=== PATIENT | male | born 1980 | race Caucasian/White ===

== ENCOUNTER 2017-06-25 13:35 | Emergency (ER) | payer BC ==
[2017-06-25 14:27] VITALS: BP 115/83
--- NOTE | 2017-06-25 14:56 | UC ---
Complaint Male HPI - HPI Summary HPI Summary: 37 year old male presents with external hemorrhoids. - History of Current Complaint Chief Complaint: UCGU Stated Complaint: PERSONAL Time Seen by Provider: 06/25/17 14:52 Hx Obtained From: Patient Onset/Duration: Sudden Onset Timing: Constant Severity Initially: Moderate Severity Currently: Moderate Pain Scale Used: 0-10 Numeric - 5 - Allergies/Home Medications Allergies/Adverse Reactions: Allergies Allergy/AdvReac Type Severity Reaction Status Date / Time No Known Allergies Allergy Verified 06/25/17 14:27 Home Medications: Home Medications Acetaminophen [Acetaminophen Extra Stren] 1,000 mg PO ONCE 06/25/17 [History Confirmed 06/25/17] Hemorrhoidal OINT* [Preparation H*] 1 applic [place] Q12H PRN 06/25/17 [History Confirmed 06/25/17] PMH/Surg Hx/FS Hx/Imm Hx Previously Healthy: Yes - Surgical History Surgical History: Yes Surgery Procedure, Year, and Place: kidney biopsy - Family History Known Family History: Positive: Hypertension - mother, Diabetes - mother Negative: Renal Disease - Social History Alcohol Use: None Substance Use Type: None Smoking Status (MU): Never Smoked Tobacco Type: Smokeless Tobacco Amount Used/How Often: 13 yrs When Did the Patient Quit Smoking/Using Tobacco: 2012 - Immunization History Most Recent Influenza Vaccination: no Review of Systems Constitutional: Negative Skin: Negative Eyes: Negative ENT: Negative Respiratory: Negative Cardiovascular: Negative Gastrointestinal: Negative Genitourinary: Other - external hemorrhoids Motor: Negative Neurovascular: Negative Musculoskeletal: Negative Neurological: Negative Psychological: Negative All Other Systems Reviewed And Are Negative: Yes Physical Exam Triage Information Reviewed: Yes Vital Signs: Initial Vital Signs Temp 36.8 C 06/25/17 14:22 Pulse 88 06/25/17 14:22 Resp 16 06/25/17 14:22 BP 115/83 06/25/17 14:22 Pulse Ox 99 06/25/17 14:22 Vital Signs Reviewed: Yes Eye Exam: Normal ENT Exam: Normal Dental Exam: Normal Neck exam: Normal Neck: Positive: 1 Respiratory Exam: Normal Cardiovascular Exam: Normal Abdominal Exam: Normal Abdomen Description: Positive: Other: Musculoskeletal Exam: Normal Neurological Exam: Normal Psychological Exam: Normal Skin Exam: Normal Complaint Male Course/Dx - Differential Dx/Diagnosis Provider Diagnoses: external hemorrhoids at 3 pm Discharge - Discharge Plan Condition: Stable Disposition: HOME Prescriptions: Hydrocortisone Acetate W/ Pram [Analpram Hc 2.5-1 %] 1 cre AZ TID PRN #1 tube PRN Reason: Pain Hydrocortisone SUPP* [Anusol HC Supp*] 25 mg AZ TID PRN #12 supp PRN Reason: Pain Patient Education Materials: Hemorrhoids (ED) Referrals: Antwan August MD [Primary Care Provider] - Additional Instructions: will follow up with his gi in [place] GI REFERRAL
== END 2017-06-25 15:10 | disposition home or self-care (01) ==
LOC: UCCORT 13:35
DX: K64.4 Residual hemorrhoidal skin tags (principal)
CPT/HCPCS: 99212; G0463

== ENCOUNTER 2017-06-28 14:35 | Emergency (ER) | payer BC ==
[2017-06-28 14:54] VITALS: BP 107/80
--- NOTE | 2017-06-28 15:46 | UC ---
Back Pain HPI - HPI Summary HPI Summary: PT HAS A H/O MINIMAL CHANGE DISEASE FOLLOWED BY NEPHROLOGY IN [place]. REPORTS THAT HIS "GUT HAS FELT OFF" FOR ABOUT 4 DAYS AND ALSO STARTED WITH LOWER EXTREMITY SWELLING. STATES THAT WHEN THE SWELLING STARTS IT IS USUALLY HIS DISEASE FLARING. HE WENT TO [facility] WHERE HE HAS A STANDING ORDER FOR LABS AND WAS TOLD HIS NUMBERS WERE AT [facility]. HE WAS PLACED ON 60MG PREDNISONE DAILY WHICH HE HAS TAKEN FOR 2 DAYS AND LASIX THAT HE STARTED LAST NIGHT. REPORTS THAT WHILE AT WORK TODAY HE VOMITED. WENT HOME AND VOMITED AGAIN. NOW HAS TERRIBLE RIGHT FLANK/BACK PAIN. WORSE WITH MOVEMENT. - History of Current Complaint Chief Complaint: UCGeneralIllness Stated Complaint: BACK PAIN, AND VOMITING Time Seen by Provider: 06/28/17 14:59 Hx Obtained From: Patient, Family/Air Defence Officer - , MOTHER Onset/Duration: Gradual Onset, Lasting Days, Still Present Timing: Constant Severity Initially: Moderate Severity Currently: Moderate Pain Intensity: 8 Pain Scale Used: 0-10 Numeric Back Pain: Is Discrete @ - RIGHT FLANK Character: Sharp Aggravating Factor(s): Movement Alleviating Factor(s): Nothing Associated Signs And Symptoms: Positive: Negative - Allergies/Home Medications Allergies/Adverse Reactions: Allergies Allergy/AdvReac Type Severity Reaction Status Date / Time No Known Allergies Allergy Verified 06/28/17 14:54 Home Medications: Home Medications Cyclobenzaprine TAB* [Flexeril 10 MG TAB*] 1 tab PO TID PRN 06/28/17 [History Confirmed 06/28/17] Furosemide TAB* [Lasix TAB*] 40 mg PO DAILY 06/28/17 [History Confirmed 06/28/17 ] predniSONE TAB* [Deltasone TAB*] 60 mg PO DAILY 06/28/17 [History Confirmed ] PMH/Surg Hx/FS Hx/Imm Hx Other GI/ History: MINIMAL CHANGE DISEASE - Surgical History Surgical History: Yes Surgery Procedure, Year, and Place: kidney biopsy - Family History Known Family History: Positive: Hypertension - mother, Diabetes - mother Negative: Renal Disease - Social History Alcohol Use: None Substance Use Type: None Smoking Status (MU): Never Smoked Tobacco Type: Smokeless Tobacco Amount Used/How Often: 13 yrs When Did the Patient Quit Smoking/Using Tobacco: 2012 - Immunization History Most Recent Influenza Vaccination: NOT Utd Review of Systems Constitutional: Negative Skin: Negative Respiratory: Negative Cardiovascular: Negative Gastrointestinal: Vomiting, Nausea Genitourinary: Negative Musculoskeletal: Myalgia All Other Systems Reviewed And Are Negative: Yes Physical Exam Triage Information Reviewed: Yes Appearance: Well-Nourished, Pain Distress - MODERATE. SITTING HUNCHED OVER HOLDING RIGHT FLANK Vital Signs: Initial Vital Signs Temp 99.1 F 06/28/17 14:50 Pulse 108 06/28/17 14:50 Resp 16 06/28/17 14:50 BP 107/80 06/28/17 14:50 Pulse Ox 98 06/28/17 14:50 Vital Signs Reviewed: Yes Eyes: Positive: Conjunctiva Clear ENT: Positive: Hearing grossly normal Neck: Positive: Supple Respiratory Exam: Normal Cardiovascular: Positive: Tachycardia Abdomen Description: Positive: Nontender, Soft. Negative: CVA Tenderness (R), CVA Tenderness (L), Distended, Guarding Musculoskeletal: Positive: Edema @ - 2+ NON PITTING EDEMA BILATERAL ANKLES Neurological: Positive: Alert Psychological: Positive: Age Appropriate Behavior Skin: Negative: rashes Back Pain Course/Dx - Course Course Of Treatment: GIVEN PT LEVEL OF DISCOMFORT AND H/O MINIMAL CHANGE DISEASE /NEPHROTIC SYNDROME WILL SEND TO ER FOR FURTHER EVALUATION. - Differential Dx/Diagnosis Provider Diagnoses: RIGHT FLANK PAIN Discharge - Discharge Plan Condition: Stable Disposition: OTHER Discharge Disposition Comment: TO [facility] BY PRIVATE CAR Patient Education Materials: Flank Pain (ED) Referrals: Antwan August MD [Primary Care Provider] - If Needed Additional Instructions: GO DIRECTLY TO THE [facility] FROM HERE FOR FURTHER EVALUATION.
== END 2017-06-28 15:35 ==
LOC: UCEAST 14:35
DX: R10.9 Unspecified abdominal pain (principal)
CPT/HCPCS: 99211; G0463

== ENCOUNTER → 2017-06-28 16:03 | Emergency (ER) | payer BC ==
[~2017-06-28 16:03] MED LIST: Cyclobenzaprine TAB* 10 MG PO ONE
[2017-06-28 16:39] LABS: Hematocrit 51 % (42-52); Hemoglobin 17.4 g/dl (14.0-18.0); Mean Corpuscular HGB Conc 34 g/dl (31-36); Mean Corpuscular Hemoglobin 31 pg (27-31); Mean Corpuscular Volume 90 fL (80-94); Mean Platelet Volume 7 um3 (7.4-10.4); Red Blood Count 5.66 10^6/ul (4.0-5.4); Red Cell Distribution Width 13 % (10.5-15); White Blood Count 12.2 10^3/ul (3.5-10.8)
[2017-06-28 16:54] LABS: Albumin 1.6 g/dL (3.2-5.2); BUN/Creatinine Ratio 25.7 (8-20); Calcium 7.4 mg/dL (8.6-10.3); EGFR African American 106.9 (>60); EGFR Non-African American 83.1 (>60); Globulin 2.8 g/dL (2-4); Potassium 4.2 mmol/L (3.5-5.0); Total Bilirubin 0.3 mg/dL (0.2-1.0); Total Protein 4.4 g/dL (6.4-8.9)
[2017-06-28 17:05] LABS: Urine Bacteria Absent (Absent); Urine Bilirubin Negative (Negative); Urine Glucose Negative (Negative); Urine Nitrite Negative (Negative)
--- NOTE | 2017-06-28 21:29 | RAD ---
Indication: RIGHT rib and back pain. Vomiting. Comparison: August 04, 2015 chest radiograph and December 06, 2014 CT abdomen. Technique: PA chest and RIGHT rib series. Report: Negative for RIGHT rib fracture. Clear lungs and pleural spaces. Negative for pneumothorax. The heart, pulmonary vasculature, and mediastinal contours are unremarkable. No evidence for pneumomediastinum or free air beneath the diaphragm. IMPRESSION: Negative exam.
--- NOTE | 2017-06-29 01:07 | ED ---
Yayo Abdul Alfonso, scribed for Dawit Davila MD on 06/28/17 at 2032 . Back Pain - HPI Summary HPI Summary: This patient is a 37 year old M presenting to [facility] referred from [facility] accompanied by mother and girlfriend with a chief complaint of right-sided back pain since 1000 this morning. He has had a similar pain before, but not this bad. The patient rates the acute pain 5/10 in severity. Symptoms aggravated by deep breaths, vomiting, and movement. Symptoms not aggravated by lifting legs while lying down, eating, and drinking. Symptoms alleviated by rest. Symptoms not alleviated by Flexeril. Patient reports vomiting, calf swelling, and hematuria (I was told, but cant really tell.). Patient denies diaphoresis, cough, testicular pain, fever, and abdominal pain. Patient took Lasix last night. - History of Current Complaint Chief Complaint: EDGeneral Stated Complaint: BACK PAIN SENT FROM Hx Obtained From: Patient Onset/Duration: Gradual Onset, Lasting Hours, Still Present Timing: Constant Back Pain Location: Is Discrete @ - right sided Severity Currently: Moderate Pain Intensity: 5 Pain Scale Used: 0-10 Numeric Aggravating Symptom(s): Other - deep breaths, vomiting, and movement. Symptoms not aggravated by lifting legs while lying down, eating, and drinking. Alleviating Symptom(s): Other - rest. Symptoms not alleviated by Flexeril Associated Signs And Symptoms: Positive: Other - vomiting, calf swelling, and hematuria (I was told, but cant really tell.). Patient denies diaphoresis, cough, testicular pain, fever, and abdominal pain. - Allergies/Home Medications Allergies/Adverse Reactions: Allergies Allergy/AdvReac Type Severity Reaction Status Date / Time No Known Allergies Allergy Verified 06/28/17 14:54 PMH/Surg Hx/FS Hx/Imm Hx Endocrine/Hematology History: Denies: Hx Diabetes, Hx Systemic Lupus Erythematosus, Hx Thyroid Disease Cardiovascular History: Denies: Hx Congestive Heart Failure, Hx Hypertension Respiratory History: Denies: Hx Asthma, Hx Chronic Obstructive Pulmonary Disease (COPD) GI History: Denies: Hx Ulcer History: Reports: Other Problems/Disorders - MINIMAL CHANGE DISEASE/ NEPHROTIC SYNDROME Denies: Hx Dialysis Comment Only: Hx Renal Disease - 2 YEARS AGO AN EPISODE OF NEPHROTIC SYNDROME. Musculoskeletal History: Denies: Hx Rheumatoid Arthritis - Cancer History Hx Chemotherapy: No - Surgical History Surgery Procedure, Year, and Place: kidney biopsy Infectious Disease History: No Infectious Disease History: Denies: Hx Clostridium Difficile, Hx Hepatitis, Hx Human Immunodeficiency Virus (HIV), Hx of Known/Suspected MRSA, Hx Shingles, Hx Tuberculosis, Hx Known/ Suspected VRE, Hx Known/Suspected VRSA, History Other Infectious Disease, Traveled Outside the [place] in Last 30 Days - Family History Known Family History: Positive: Hypertension - mother, Diabetes - mother Negative: Renal Disease - Social History Alcohol Use: None Hx Substance Use: No Substance Use Type: Reports: None Hx Tobacco Use: Yes Smoking Status (MU): Never Smoked Tobacco Type: Smokeless Tobacco Amount Used/How Often: 13 yrs Review of Systems Negative: Fever, Skin Diaphoresis Negative: Cough Positive: Vomiting. Negative: Abdominal Pain Positive: hematuria, other - Negative testicular pain Positive: Edema, Other - right-sided back pain All Other Systems Reviewed And Are Negative: Yes Physical Exam - Summary Physical Exam Summary: Appearance: Well-appearing, Well-nourished Sin: Warm, No bruising Eyes: Normal ENT: Normal Neck: Supple, nontender Respiratory: Clear to auscultation Cardiovascular: Normal, Normal radial and pedal pulses Abdomen: Soft, nontender, No CVA tenderness bilaterally. Bowel: Present Musculoskeletal: Strength/ROM Intact, Mild tenderness to right flank with crepitus or desi abnormalities Neurological:k Normal, A&Ox3 Psychiatric: Normal Triage Information Reviewed: Yes Vital Signs On Initial Exam: Initial Vitals Temp Pulse Resp BP Pulse Ox 99.3 F 106 17 111/83 99 06/28/17 16:19 06/28/17 16:19 06/28/17 16:19 06/28/17 16:19 06/28/17 16:19 Vital Signs Reviewed: Yes - Jamie Coma Scale Coma Scale Total: 15 Diagnostics - Vital Signs Vital Signs Temp Pulse Resp BP Pulse Ox 06/28/17 18:21 99 F 102 17 110/79 97 06/28/17 16:19 99.3 F 106 17 111/83 99 - Laboratory Lab Results: Lab Results 06/28/17 06/28/17 06/28/17 Range/Units 16:25 16:25 16:35 WBC 12.2 H (3.5-10.8) 10^3/ul RBC 5.66 H (4.0-5.4) 10^6/ul Hgb 17.4 (14.0-18.0) g/dl Hct 51 (42-52) % MCV 90 (80-94) fL MCH 31 (27-31) pg MCHC 34 (31-36) g/dl RDW 13 (10.5-15) % Plt Count 385 (150-450) 10^3/ul MPV 7 L (7.4-10.4) um3 Neut % (Auto) 71.5 (38-83) % Lymph % (Auto) 17.3 L (25-47) % Mcdonough % (Auto) 9.6 H (1-9) % Eos % (Auto) 0.4 (0-6) % Baso % (Auto) 1.2 (0-2) % Absolute Neuts (auto) 8.7 H (1.5-7.7) 10^3/ul Absolute Lymphs (auto) 2.1 (1.0-4.8) 10^3/ul Absolute Monos (auto) 1.2 H (0-0.8) 10^3/ul Absolute Eos (auto) 0 (0-0.6) 10^3/ul Absolute Basos (auto) 0.1 (0-0.2) 10^3/ul Absolute Nucleated RBC 0.01 10^3/ul Nucleated RBC % 0.1 Sodium 129 L (133-145) mmol/L Potassium 4.2 (3.5-5.0) mmol/L Chloride 97 L (101-111) mmol/L Carbon Dioxide 31 (22-32) mmol/L Anion Gap 1 L (2-11) mmol/L BUN 26 H (6-24) mg/dL Creatinine 1.01 (0.67-1.17) mg/dL Est GFR ( Amer) 106.9 (>60) Est GFR (Non-Af Amer) 83.1 (>60) BUN/Creatinine Ratio 25.7 H (8-20) Glucose 103 H (70-100) mg/dL Calcium 7.4 L (8.6-10.3) mg/dL Total Bilirubin 0.30 (0.2-1.0) mg/dL AST 25 (13-39) U/L ALT 15 (7-52) U/L Alkaline Phosphatase 33 L (34-104) U/L Total Protein 4.4 L (6.4-8.9) g/dL Albumin 1.6 L (3.2-5.2) g/dL Globulin 2.8 (2-4) g/dL Albumin/Globulin Ratio 0.6 L (1-3) Urine Color Yellow Urine Appearance Clear Urine pH 7.0 (5-9) Ur Specific [place] 1.023 (1.010-1.030) Urine Protein 3+(>=500 mg/dl) H (Negative) Urine Ketones Negative (Negative) Urine Blood 1+ H (Negative) Urine Nitrate Negative (Negative) Urine Bilirubin Negative (Negative) Urine Urobilinogen Negative (Negative) Ur Leukocyte Esterase Negative (Negative) Urine WBC (Auto) Trace(0-5/hpf) (Absent) Urine RBC (Auto) Trace(0-2/hpf) (Absent) Ur Transition Epith Cell Present H (Absent) Urine Bacteria Absent (Absent) Granular Casts Present H (Absent) Urine Glucose Negative (Negative) Result Diagrams: 06/28/17 16:25 06/28/17 16:25 Lab Statement: Any lab studies that have been ordered have been reviewed, and results considered in the medical decision making process. - Radiology Ribs w/ Chest X-Ray Radiology Interpretation Completed By: Radiologist - Negative exam. ED physician has reviewed this radiology report and agrees. - CT A/P CT Interpretation Completed By: Radiologist - Nephrolithiasis. ED physician has reviewed this radiology report and agrees. Re-Evaluation - Re-Evaluation First Eval Re-Evaluation Time: 01:02 Change: Improved Back Pain Course/Dx - Course Assessment/Plan: pt seen to have 3mm nonobstruting stone R calyx, instructed to fu wtih pmd and return for any worsening sxs. also instruted to fu with urologist within 1 week. no evidence of uti, agrees to and udnersteligio herrera instructiosn.s - Diagnoses Provider Diagnoses: Renal stone Discharge - Discharge Plan Condition: Improved Disposition: HOME Prescriptions: Methocarbamol TAB* [Robaxin 500 MG TAB*] 500 mg PO BID PRN #12 tab PRN Reason: Pain - Moderate oxyCODONE/Acetamin 5/325 MG* [Percocet 5/325 TAB*] 1 tab PO Q6H PRN #10 tab MDD 4 tabs PRN Reason: Pain - Moderate To Severe Patient Education Materials: Kidney Stones (ED) Referrals: Antwan August MD [Primary Care Provider] - Tyler Coto MD [Medical Doctor] - Additional Instructions: RETURN TO THE EMERGENCY DEPARTMENT FOR CHANGING OR WORSENING SYMPTOMS. PLEASE MAKE AN APPOINTMENT TO SEE YOUR PRIMARY CARE DOCTOR TO BE SEEN WITHIN 1 WEEK. PLEASE MAKE AN APPOINTMENT TO BE SEEN BY A UROLOGIST WITHIN 1 WEEK The documentation as recorded by the Yayo gomez Alfonso accurately reflects the service I personally performed and the decisions made by , Dawit Davila MD.
[2017-06-29 01:46] VITALS: BP 105/84
--- NOTE | 2017-06-29 10:01 | RAD ---
CLINICAL HISTORY: Right flank pain in a patient with reported history of kidney stones. Relevant medical history includes "kidney biopsy" COMPARISON: Similar CT examination dated December 06, 2014 TECHNIQUE: Noncontrast CT examination of the abdomen and pelvis from the lung bases through the initial tuberosities. FINDINGS: VISUALIZED LUNG BASES: The visualized lung bases are grossly clear. There is no pleural effusion. ABDOMEN AND PELVIS: Evaluation of the solid organs and vasculature is limited without intravenous contrast. The liver, spleen, pancreas and adrenal glands are grossly normal in appearance. The gallbladder is normal. The left kidney has normal in appearance without focal mass, calcification or signs of hydronephrosis. At the lower pole of the right kidney there are 2 punctate calcifications not exceeding 2 mm in diameter. In the vicinity of the distal right ureter just proximal to the right ureterovesical junction there is a punctate calcification (image 129 of 169). There is no definite right-sided hydronephrosis or perinephric stranding. Evaluation of the gastrointestinal tract is limited without oral contrast. The small and large bowel are not distended.The patient's normal appendix is identified in the right lower quadrant measuring 6 mm in diameter (coronal image 38). Depicted best on the coronal plane images there are multiple top normal but not pathologically enlarged mesenteric lymph nodes measuring up to 8 mm in short axis diameter (image 32 and 39). There is mild infiltration of the mesenteric fat along the central midline mesenteric root. There is no definite retroperitoneal lymphadenopathy. The pelvic viscera is normal in appearance. The abdominal aorta and iliac arteries are normal in course and diameter. There are no sinister bone lesions. IMPRESSION: 1. There are at least 2 punctate calcifications in the lower pole right collecting system as well as a punctate calcification identified at the expected location of the distal right ureter proximal to the ureterovesical junction. There is no definite signs of acute urinary obstruction or inflammation. Please correlate to signs and symptoms of passage of a small right-sided urinary stone. 2. There is visualization of top normal but not pathologically enlarged mesenteric lymph nodes with the appearance of "kim mesentery" along the midline mesenteric root. This is a questionable and highly nonspecific finding which could be seen in the setting of mesenteric edema, inflammatory bowel disease, mesenteric panniculitis or even neoplastic processes such as mesenteric lymphoma.
== END | disposition home or self-care (01) ==
LOC: ED 16:03
DX: N20.0 Calculus of kidney (principal)
CPT/HCPCS: 36415; 74176; 80053; 81003; 81015; 85025; 99284; A9270-GY

== ENCOUNTER 2018-06-22 16:11 | Emergency (ER) | payer BC ==
[2018-06-22 16:45] VITALS: BP 112/81
--- NOTE | 2018-06-22 17:02 | UC ---
Complaint Male HPI - HPI Summary HPI Summary: C/O pain with urination and penile pain x 3-4 days. Has also noticed deviation in his urinary stream to the side. C/O possibly passing stone. Has had that in the past. - History of Current Complaint Chief Complaint: UCGU Stated Complaint: PERSONAL Time Seen by Provider: 06/22/18 16:53 Hx Obtained From: Patient Onset/Duration: Sudden Onset, Lasting Days - 4, Still Present Timing: Constant - pain in the penis, Intermittent - pain with urination Severity Initially: Mild Severity Currently: Moderate Pain Intensity: 3 Location: Penis Character: Burning, Constant Pressure - aching at the base of the penis with a feeling like there is a stone moving. Aggravating Factor(s): Voiding Alleviating Factor(s): Nothing Associated Signs And Symptoms: Positive: Dysuria. Negative: Diaphoresis, Back Pain, Fever, Hematuria, Penile Swelling, Penile Discharge - Allergies/Home Medications Allergies/Adverse Reactions: Allergies Allergy/AdvReac Type Severity Reaction Status Date / Time No Known Allergies Allergy Verified 06/22/18 16:45 PMH/Surg Hx/FS Hx/Imm Hx Other GI/ History: H/O nephrotic syndrome - Surgical History Surgical History: Yes Surgery Procedure, Year, and Place: kidney biopsy - Family History Known Family History: Positive: Cardiac Disease - congestive heart failure, Hypertension - mother, Diabetes - mother Negative: Renal Disease - Social History Occupation: Employed Full-time Lives: With Family Alcohol Use: None Substance Use Type: None Smoking Status (MU): Never Smoked Tobacco Type: Smokeless Tobacco Amount Used/How Often: 1 can in 2 days Length of Time of Smoking/Using Tobacco: since age 13 When Did the Patient Quit Smoking/Using Tobacco: 2012 - Immunization History Most Recent Influenza Vaccination: NOT Utd Review of Systems All Other Systems Reviewed And Are Negative: Yes Genitourinary: Positive: Dysuria. Negative: Frequency, Urgency Is Patient Immunocompromised?: No Physical Exam Triage Information Reviewed: Yes Appearance: Well-Appearing, No Pain Distress, Well-Nourished Vital Signs: Initial Vital Signs Temp 99.7 F 06/22/18 16:37 Pulse 90 06/22/18 16:37 Resp 16 06/22/18 16:37 BP 112/81 06/22/18 16:37 Pulse Ox 98 06/22/18 16:37 Vital Signs Reviewed: Yes Eyes: Positive: Conjunctiva Clear Neck exam: Normal Respiratory Exam: Normal Cardiovascular Exam: Normal Abdomen Description: Positive: Nontender, No Organomegaly, Soft. Negative: CVA Tenderness (R), CVA Tenderness (L) Bowel Sounds: Positive: Present Male Genital Exam: Positive: Normal Genitalia. Negative: Testicular Tenderness (R), Testicular Tenderness (L), Urethral Discharge Musculoskeletal Exam: Normal Neurological Exam: Normal Psychological Exam: Normal Skin Exam: Normal Complaint Male Course/Dx - Course Course Of Treatment: discussed possible urethral stone. - Differential Dx/Diagnosis Differential Diagnosis/HQI/PQRI: Epididymitis, Prostatitis, Ureteral Calculi Provider Diagnoses: Acute prostatitis Discharge - Sign-Out/Discharge Documenting (check all that apply): Patient Departure All imaging exams completed and their final reports reviewed: No Studies - Discharge Plan Condition: Stable Disposition: HOME Prescriptions: DOXYcycline CAP(*) [DOXYcycline 100MG CAP(*)] 100 mg PO BID #20 cap Tamsulosin CAP* [Flomax CAP*] 0.4 mg PO BEDTIME #30 cap Patient Education Materials: Prostatitis (ED), Doxycycline (By mouth), Tamsulosin (By mouth) Referrals: Antwan August MD [Primary Care Provider] - - Billing Disposition and Condition Condition: STABLE Disposition: Home
== END 2018-06-22 17:25 | disposition home or self-care (01) ==
LOC: UCCORT 16:11
DX: N41.0 Acute prostatitis (principal); F17.220 Nicotine dependence, chewing tobacco, uncomplicated
CPT/HCPCS: 81003; 99212; G0463

== ENCOUNTER 2018-07-09 15:20 | Emergency (ER) | payer BC ==
[2018-07-09 15:43] VITALS: BP 111/75
--- NOTE | 2018-07-09 16:16 | UC ---
Abdominal Pain Male HPI - HPI Summary HPI Summary: 38-year-old male presents with complaints of one week history of mid to upper abdominal pain. Describes pain as constant aching. Pain seems to worsen with movement. Nonradiating. States he has been diagnosed in the past with abdominal muscle tear for which she takes when necessary cyclobenzaprine. States the pain is similar to the pain is had in the past although lasting longer than normal. He took his cyclobenzaprine for the first time today with some minimal relief. Pain is associated with some mild nausea. He has been diagnosed in the past with minimal change disease and is followed by Dr. Gibson , nephrology, at [facility] in [place]. States yesterday he started noticing some foaming with his urine which is suggestive of a flare of his nephrotic syndrome. He has standing lab work which she did have performed yesterday at [facility] however the results are unknown at this time. He started himself on 60 mg of prednisone daily yesterday as per instructions of his acid filler. It is also noted that he was seen at this facility on 06/22/2018 and diagnosed with prostatitis and placed on a ten-day course of doxycycline which he did complete. Denies fever, chills, vomiting, diarrhea, blood in stool , flank or back pain, dysuria, urgency, frequency, hematuria, testicular pain or swelling. - History of Current Complaint Chief Complaint: UCGeneralIllness Stated Complaint: NAUSEA,ABD PAIN Time Seen by Provider: 07/09/18 15:31 Hx Obtained From: Patient Onset/Duration: Gradual Onset, Lasting Days Severity Currently: Moderate Pain Intensity: 5 Location: Other - See HPI Radiates: No Character: Aching Aggravating Factor(s): Movement Alleviating Factor(s): Nothing Associated Signs And Symptoms: Positive: Nausea. Negative: Diaphoresis, Fever, Cough, Chest Pain, Dizzy, Back Pain, Constipation, Blood in Stool, Urinary Symptoms, Decreased Appetite, Vomiting, Diarrhea, Penile Discharge - Allergies/Home Medications Allergies/Adverse Reactions: Allergies Allergy/AdvReac Type Severity Reaction Status Date / Time No Known Allergies Allergy Verified 07/09/18 15:32 Home Medications: Home Medications Cyclobenzaprine TAB* [Flexeril 10 MG TAB*] 10 mg PO TID PRN 07/09/18 [History Confirmed 07/09/18] predniSONE [Prednisone 20 MG TAB] 60 mg PO DAILY 07/09/18 [History Confirmed ] PMH/Surg Hx/FS Hx/Imm Hx GI/ History: Kidney Stones, Renal Disease - Surgical History Surgical History: Yes Surgery Procedure, Year, and Place: kidney biopsy - Family History Known Family History: Positive: Cardiac Disease - congestive heart failure, Hypertension - mother, Diabetes - mother Negative: Renal Disease - Social History Occupation: Employed Full-time Lives: With Family Alcohol Use: None Substance Use Type: None Smoking Status (MU): Never Smoked Tobacco Type: Smokeless Tobacco Amount Used/How Often: 1 can in 2 days Length of Time of Smoking/Using Tobacco: since age 13 When Did the Patient Quit Smoking/Using Tobacco: 2012 - Immunization History Most Recent Influenza Vaccination: NOT Utd Review of Systems All Other Systems Reviewed And Are Negative: Yes Constitutional: Negative: Fever, Chills Skin: Negative: Rash Respiratory: Negative: Shortness Of Breath, Cough Cardiovascular: Negative: Palpitations, Chest Pain Gastrointestinal: Positive: Abdominal Pain, Nausea. Negative: Vomiting, Diarrhea Genitourinary: Positive: Other - No testicular pain or swelling. Negative: Dysuria, Hematuria, Frequency, Urgency, Vaginal/Penile Discharge Is Patient Immunocompromised?: No Physical Exam - Summary Physical Exam Summary: GENERAL APPEARANCE: Well developed, well nourished, alert and cooperative, and appears to be in no acute distress. CARDIAC: Normal S1 and S2. No S3, S4 or murmurs. Tachycardic. Rhythm is regular. There is no peripheral edema, cyanosis or pallor. Extremities are warm and well perfused. Capillary refill is less than 2 seconds. LUNGS: Clear to auscultation and percussion without rales, rhonchi, wheezing or diminished breath sounds. ABDOMEN: Positive bowel sounds. Soft, nondistended, nontender. No guarding or rebound. No masses or hepatosplenomegally. No CVA tenderness. MUSKULOSKELETAL: ROM intact to all extremities. No joint erythema or tenderness. Normal muscular development. Normal gait. SKIN: Skin normal color, texture and turgor with no lesions or eruptions. Triage Information Reviewed: Yes Vital Signs: Initial Vital Signs Temp 98.5 F 07/09/18 15:36 Pulse 110 07/09/18 15:36 Resp 20 07/09/18 15:36 BP 111/75 07/09/18 15:36 Pulse Ox 98 07/09/18 15:36 Vital Signs Reviewed: Yes Abd Pain Male Course/Dx - Course Course Of Treatment: 38-year-old male presents with complaints of one week history of mid to upper abdominal pain. Describes pain as constant aching. Pain seems to worsen with movement. Nonradiating. States he has been diagnosed in the past with abdominal muscle tear for which he takes when necessary cyclobenzaprine. States the pain is similar to the pain is had in the past although lasting longer than normal. He took his cyclobenzaprine for the first time today with some minimal relief. Pain is associated with some mild nausea. He has been diagnosed in the past with minimal change disease and is followed by Dr. Gibson, nephrology, at [facility] in [place]. States yesterday he started noticing some foaming with his urine which is suggestive of a flare of his nephrotic syndrome. He has standing lab work which she did have performed yesterday at [facility] however the results are unknown at this time. He started himself on 60 mg of prednisone daily yesterday as per instructions of his acid filler. It is also noted that he was seen at this facility on 06/2018 and diagnosed with prostatitis and placed on a ten-day course of doxycycline which he did complete. Denies fever, chills, vomiting, diarrhea, blood in stool, flank or back pain, dysuria, urgency, frequency, hematuria, testicular pain or swelling. Afebrile. Mildly tachycardic however patient states that this is typical when he takes prednisone. His exam was unremarkable. Discussed options for evaluating his abdominal pain including checking a urine and trying obtain the outpatient lab work however patient is electing to go to [facility] ED for evaluation via private vehicle at this time. - Differential Dx/Clinical Impression Differential Diagnosis/HQI/PQRI: Gall Bladder Disease, Pancreatitis, Peptic Ulcer Disease, Ureteral Stone, Urinary Tract Infection Provider Diagnosis: Acute abdominal pain Discharge - Sign-Out/Discharge Documenting (check all that apply): Patient Departure All imaging exams completed and their final reports reviewed: No Studies - Discharge Plan Condition: Stable Disposition: HOME-RECOMMEND TO ED Patient Education Materials: Acute Abdominal Pain (ED) Referrals: Antwan August MD [Primary Care Provider] - Additional Instructions: Your exam in the clinic today was unremarkable however I cannot access your lab work performed yesterday at [facility] and cannot obtain lab results in a timely manner to assess adequately for possible causes of your abdominal pain. Based on our conversation I am recommending that you go to [facility] Emergency Room for further evaluation of your abdominal pain. Go directly to the emergency room. Do not eat or drink anything until you have been evaluated and cleared to do so. - Billing Disposition and Condition Condition: STABLE Disposition: Home-Recommend to ED
== END 2018-07-09 16:20 | disposition home health service (06) ==
LOC: UCCORT 15:20
DX: R10.9 Unspecified abdominal pain (principal); Z87.442 Personal history of urinary calculi; F17.220 Nicotine dependence, chewing tobacco, uncomplicated
CPT/HCPCS: 99212; G0463

== ENCOUNTER 2018-09-02 14:35 | Emergency (ER) | payer BC ==
--- OUTSIDE RECORDS SUMMARY | 2018-09-02 14:46 | XMS REPORT ---
:1980 External Reference #:[id number] Author Organization [facility] Address [address] [place] [address] Phone [phone] Care Team Providers Name Role Phone Antwan August MD Care Team Information Contract Administrative Assistant Unavailable Antwan August MD Primary Care Physician Unavailable Payers Type Date Identification Numbers Payment Provider Subscriber Commercial Policy Number: [id number] /BS Of VALENTINE Bradly Duke JR PayID: [id number] [address] [address] [place] [address] Problems Date Description Provider Status Onset: 02/21/2012 Hernia of abdominal wall Dash Devine M.D. Active Onset: 03/10/2012 Abdominal pain Dash Devine M.D. Active Onset: 07/02/2017 Kidney stone Antwan August M.D. Active Onset: 12/08/2012 Nephrotic syndrome Dash Devine M.D. Active Family History Date Family Member(s) Problem(s) Comments Mother Diabetes Mellitus, II Social History Type Date Description Comments Occupation [employer] Cigarette Use Never Smoked Cigarettes Smokeless Tobacco Former Smokeless Tobacco User, Used Five Times Daily ETOH Use Rare Recreational Drug Use Denies Drug Use Smoking Patient has never smoked Daily Caffeine Daily Caffeine used to drink energy drinks 1 a day. Allergies, Adverse Reactions, Alerts Date Description Reaction Status Severity Comments 02/21/2012 Hay active sneezing 04/24/2017 Perindopril active hypotension 02/21/2012 NKDA inactive Medications Medication Date Status Form Strength Qnty SIG Indications Ordering Provider Cyclobenzaprine 07/29 Active Tablets 10mg 90tab 1 by Anay C. s mouth Jonel, three PACK PULLER times a day as needed Prednisone Active Tablets 60mg take one Unknown /0000 by mouth daily for 7 day taper Omeprazole Active Capsules 20mg 1 by Unknown /0000 DR carmel every day Work Excuse 07/14 Hx Please be Antwan aware Mariangel, - that M.D. 08/08 has had a recurrenc e of nephrotic syndrome and is currently under care for this. Return To Work 07/06 Hx patient Antwan Aguirre December Mariangel, - return to M.D. 11/08 work 07/08/17 Flomax 07/02 Hx Capsules 0.4mg 30cap 1 by Antwan Aguirre s mouth Mariangel, - every day M.D. 07/03 for days Furosemide 07/02 Hx Tablets 40mg take 1 tablets Doctor - once 11/08 Return To Work 09/15 Hx patient Antwan Aguirre December Mariangel, - return to M.D. 04/24 work 09/19/15 Labs 09/01 Hx p3 - N04.9 Antwan hold/call Mariangel, - M.D. 09/15 Work Note 09/01 Hx please Antwan Aguirre excuse Mariangel, - patient M.D. 09/15 from starting 08/30/15 until further notice Furosemide 09/01 Hx Tablets 20mg 30tab 1 tab by s mouth Noe, - every day M.D. 09/15 Econazole Nitrate 06/25 Hx Cream 1% 30gm apply Antwan once a Mariangel, - day to M.D. 08/04 area for 2 weeks Cyclobenzaprine 12/28 Hx Tablets 10mg 90tab 1 by Carol HCL s mouth Cordell, - three DATA ENTRY REPRESENTATIVE 07/01 times day as needed Cyclobenzaprine 12/21 Hx Tablets 10mg 20tab 1 by Saskia HCL s mouth Elizabethorf, - three Afnp-C 12/28 times day as needed Sucralfate 11/20 Hx Tablets 1gm 90tab 1 by 789.06 Antwan Burr. cody August, - three M.D. 12/20 times day Sucralfate 11/17 Hx Suspension 1GM/10ML 120ml 1 gram po 789.06 qid prn Cordell, - abdominal DATA ENTRY REPRESENTATIVE 11/20 pain, prior to meals Zantac 11/17 Hx Tablets 150mg 30tab take one 9.06 s tablet by Cordell, - mouth DATA ENTRY REPRESENTATIVE 09/01 before breakfast Omeprazole 08/19 Hx Capsules 20mg 360ca [address] noel Landa, - every day DATA ENTRY REPRESENTATIVE 12/01 in the morning, 1 po every evening Omeprazole 08/19 Hx Capsules 40mg 30cap 1 by 789.[address] cody Morales, - every day M.D. 09/03 Prednisone 06/26 Hx Tablets 5mg use as [facility] 08/19 [facility] Furosemide 01/09 Hx Tablets 20mg 30tab 1 po qd Bowling A. cody Devine M.D. - 08/19 Pravastatin 12/08 Hx Tablets 20mg 90tab 1 po qd Bowling A. cody Devine M.D. - 08/19 Hydrochlorothiazi 11/06 Hx Tablets 25mg 30tab 1 po qd 729.81 Hermelinda cody Garcia - Afadrianne-C 12/29 Out Of Work 11/06 Hx out of 729.81 work Radha, - tomorrow Emilia-C 11/09 due to illness No Active 02/20 Hx Unknown Medications /2011 - 11/06 Lisinopril Hx Tablets 20mg 30tab 1 po qd Bowling A. / cody Devine M.D. - 08/19 Furosemide Hx Tablets 80mg 30tab 1 po qd Unknown /0000 s - 01/09 Zocor Hx Tablets 20mg 90tab take one Unknown /0000 s tablet by - mouth at 12/08 bedtime Sulfamethoxazole/ Hx Tablets 400-80mg 14tab 1 po 3 Bowling A. Trimethoprim /0000 s times per Evan Devine - week 08/19 Prednisone 00/00 Hx Tablets 20mg 90tab 3 tabs po Connor J. /0000 s qd Clive Boggs M.DMercedes 06/26 Calcium 00/00 Hx Tablets 500-400mg 1 po bid Unknown 500/Vitamin D3 /0000 -Unit - 08/19 Vitamin D 00/ Hx Tablets 1000Unit 1 po qd Unknown /0000 - 04/24 Atorvastatin 00 Hx Tablets 20mg 1 by Unknown Calcium /0000 mouth - every day 04/[address] 40mg 30tab 1 by Antwan A. Sodium /0000 s mouth Darlow, - every day M.D. 04/24 Sulfamethoxazole/ 00 Hx Tablets 800-160mg 1 po Unknown Trimethoprim DS /0000 three - times per Zolpidem Tartrate Hx Tablets 5mg 1 po qhs Unknown /0000 - 04/24 Prednisone 00 Hx Tablets 20mg 90tab 3 by Antwan A. /0000 s mouth Darlow, - every day M.D. 04/24 Prednisone 00 Hx Tablets 20mg 60mg qd Unknown /0000 - 11/08 Robaxin 00 Hx Tablets 500mg 1 po tid Unknown /0000 prn - 07/29 Percocet 0000 Hx Tablets 5-325mg 1 tabs by Unknown /0000 mouth - every 6 30 hours needed pain Immunizations CPT Code Status Date Vaccine Lot # [id number] Given 11/08/2017 Tdap Tetanus, W Pertussis [id number] Vital Signs Date Vital Result Comment 08/08/2018 BP Systolic 142 mmHg BP Diastolic 82 mmHg Heart Rate 100 /min Body Temperature 98.6 F Height 66 inches 5'6" Weight 133.00 lb BMI (Body Mass Index) 21.5 kg/m2 07/14/2018 BP Systolic 122 mmHg BP Diastolic 68 mmHg Heart Rate 80 /min Body Temperature 99.0 F Respiratory Rate 16 /min Height 66 inches 5'6" Weight 125.00 lb BMI (Body Mass Index) 20.2 kg/m2 11/08/2017 BP Systolic 124 mmHg BP Diastolic 80 mmHg Heart Rate 88 /min Body Temperature 97.6 F Respiratory Rate 16 /min Height 66 inches 5'6" Weight 144.00 lb BMI (Body Mass Index) 23.2 kg/m2 07/02/2017 BP Systolic 120 mmHg BP Diastolic 70 mmHg Heart Rate 80 /min Body Temperature 99.7 F Respiratory Rate 16 /min Height 66 inches 5'6" Weight 150.00 lb BMI (Body Mass Index) 24.2 kg/m2 04/24/2017 BP Systolic 100 mmHg BP Diastolic 70 mmHg Heart Rate 78 /min Body Temperature 98.4 F Respiratory Rate 16 /min Height 66 inches 5'6" Weight 135.00 lb BMI (Body Mass Index) 21.8 kg/m2 09/15/2015 BP Systolic 120 mmHg BP Diastolic 70 mmHg Heart Rate 96 /min Body Temperature 98.5 F Respiratory Rate 16 /min Height 66 inches 5'6" Weight 140.00 lb BMI (Body Mass Index) 22.6 kg/m2 09/01/2015 BP Systolic 130 mmHg BP Diastolic 90 mmHg Heart Rate 92 /min Body Temperature 98.3 F Respiratory Rate 12 /min Height 66 inches 5'6" Weight 175.00 lb BMI (Body Mass Index) 28.2 kg/m2 08/04/2015 BP Systolic 90 mmHg las BP Diastolic 60 mmHg las Heart Rate 120 /min Body Temperature 97.5 F Respiratory Rate 16 /min Height 66 inches 5'6" Weight 138.00 lb BMI (Body Mass Index) 22.3 kg/m2 06/22/2015 BP Systolic 128 mmHg BP Diastolic 84 mmHg Heart Rate 80 /min Body Temperature 98.3 F Respiratory Rate 16 /min Height 66 inches 5'6" Weight 132.00 lb BMI (Body Mass Index) 21.3 kg/m2 12/21/2014 BP Systolic 106 mmHg BP Diastolic 74 mmHg Heart Rate 66 /min Body Temperature 98.6 F Height 66 inches 5'6" Weight 135.00 lb BMI (Body Mass Index) 21.8 kg/m2 12/01/2014 BP Systolic 110 mmHg BP Diastolic 74 mmHg Heart Rate 72 /min Body Temperature 97.7 F Respiratory Rate 16 /min Height 66 inches 5'6" Weight 128.00 lb BMI (Body Mass Index) 20.7 kg/m2 11/17/2014 BP Systolic 110 mmHg BP Diastolic 70 mmHg Heart Rate 72 /min Body Temperature 99.9 F Respiratory Rate 18 /min Height 66 inches 5'6" Weight 130.00 lb BMI (Body Mass Index) 21.0 kg/m2 08/19/2014 BP Systolic 112 mmHg BP Diastolic 70 mmHg Heart Rate 68 /min Body Temperature 97.8 F Respiratory Rate 18 /min Height 66 inches 5'6" Weight 131.00 lb BMI (Body Mass Index) 21.1 kg/m2 01/09/2013 BP Systolic 100 mmHg BP Diastolic 60 mmHg Heart Rate 76 /min Body Temperature 96.9 F Respiratory Rate 18 /min Height 66 inches 5'6" Weight 137.00 lb BMI (Body Mass Index) 22.1 kg/m2 12/29/2012 BP Systolic 100 mmHg BP Diastolic 70 mmHg Heart Rate 80 /min Body Temperature 97.7 F Respiratory Rate 16 /min Height 66 inches 5'6" Weight 134.00 lb BMI (Body Mass Index) 21.6 kg/m2 12/08/2012 BP Systolic 122 mmHg BP Diastolic 80 mmHg Heart Rate 72 /min Body Temperature 97.3 F Respiratory Rate 18 /min Height 66 inches 5'6" Weight 159.00 lb BMI (Body Mass Index) 25.7 kg/m2 11/06/2012 BP Systolic 132 mmHg BP Diastolic 92 mmHg Heart Rate 84 /min Body Temperature 98.9 F Height 66 inches 5'6" Weight 149.50 lb BMI (Body Mass Index) 24.1 kg/m2 03/10/2012 BP Systolic 104 mmHg BP Diastolic 72 mmHg Heart Rate 66 /min Body Temperature 96.6 F Height 66 inches 5'6" Weight 130.00 lb BMI (Body Mass Index) 21.0 kg/m2 02/21/2012 BP Systolic 128 mmHg BP Diastolic 88 mmHg Heart Rate 78 /min Body Temperature 98.9 F Height 66 inches 5'6" Weight 121.00 lb BMI (Body Mass Index) 19.5 kg/m2 07/17/2007 BP Systolic 118 mmHg BP Diastolic 72 mmHg Heart Rate 72 /min Respiratory Rate 16 /min Weight 123.00 lb Results Test Date Test Result H/L Range Note Laboratory test finding 07/14/2018 Lipase 26 U/L 13-78 1 Comprehensive Metabolic Prof 07/14/2018 Sodium 139 mEq/L 134-149 Potassium 4.3 mEq/L 3.6-5.5 Chloride 106 mEq/L 94-112 Carbon Dioxide 28 mEq/L 21-32 Glucose 135 mg/dL High 70-105 2 BUN 14 mg/dL 6-26 Creatinine 0.8 mg/dL 0.6-1.4 BUN/Creat Ratio 17.5 CALC 8.0-36.0 Calcium 8.9 mg/dL 8.6-10.2 Total Protein 7.3 g/dL 6.4-8.3 Albumin 4.9 g/dL 3.8-5.5 Globulin 2.4 g/dL 2.0-4.8 A/G Ratio 2.0 CALC 0.6-2.3 Alk. Phosphatase 34 U/L 22-95 Alt (SGPT) 19 U/L 7-35 Ast (Sgot) 11 U/L 5-34 Total Bilirubin 0.6 mg/dL 0.2-1.3 GFR Non- >60 ml/min/1.73m^ >=60 GFR >60 ml/min/1.73m^ >=60 Laboratory test finding 07/14/2018 Amylase, Serum 62 U/L 20-105 Poc Urinalysis 06/22/2018 Poc Glucose, Urine Negative Negative Poc Bilirubin, Urine Negative Negative Poc Ketone, Urine Trace Negative Poc Specific [place], Urine 1.025 1.010-1.030 Poc Blood, Urine Trace-intact Negative Poc pH, Urine 6.0 5-9 Poc Protein, Urine 1+ Negative Poc Urobilinogen, Urine 0.2 Negative Poc Nitrite, Urine Negative Negative Poc Leukocytes, Urine Negative Negative Poc Color, Urine Sujata Poc Clarity, Urine Clear 3 Ua - Micro (Fma) 07/02/2017 Appearance CLEAR Color YELLOW Glucose, Urine (Fma/CMC/CTX) NEG Bilirubin NEG Ketones TRACE SP Grav 1.025 Blood SMALL PH 7.0 Protein 3+ Urobil 0.2 Nitrite NEG Leukocytes (Fma/CMC/Centrex) NEG Hyaline - /Lpf Granular - /Lpf WBC (Fma,Centrex) - RBC 10-12 Mucus SM AMT /Lpf Epith RARE /Lpf Bacteria TRACE /Hpf Amorphous - /Lpf Crystals, Fluid (Fma/CMC/CTX) - Z#Comments - Urinalysis Profile 06/28/2017 Urine Color Yellow Urine Appearance Clear Urine Specific [place] 1.023 1.010-1.030 Urine pH 7.0 5-9 Urine Urobilinogen Negative Negative Urine Ketones Negative Negative Urine Protein 3+(>=500 mg/dL) Negative Urine Leukocytes Negative Negative Urine Blood 1+ Negative Urine Nitrite Negative Negative Urine Bilirubin Negative Negative Urine Glucose Negative Negative Urine White Blood Cell Trace(0-5/hpf) Absent Urine Red Blood Cell Trace(0-2/hpf) Absent Urine Bacteria Absent Absent Urine Transitional Epithelial Present Absent Urine Granular Casts Present Absent CBC Auto Diff 06/28/2017 White Blood Count 12.2 10^3/uL High 3.5-10.8 Red Blood Count 5.66 10^6/uL High 4.0-5.4 Hemoglobin 17.4 g/dL 14.0-18.0 Hematocrit 51 % 42-52 Mean Corpuscular Volume 90 fL 80-94 Mean Corpuscular Hemoglobin 31 pg 27-31 Mean Corpuscular HGB Conc 34 g/dL 31-36 Red Cell Distribution Width 13 % 10.5-15 Platelet Count 385 10^3/uL 150-450 Mean Platelet Volume 7 um3 Low 7.4-10.4 Abs Neutrophils 8.7 10^3/uL High 1.5-7.7 Abs Lymphocytes 2.1 10^3/uL 1.0-4.8 Abs Monocytes 1.2 10^3/uL High 0-0.8 Abs Eosinophils 0 10^3/uL 0-0.6 Abs Basophils 0.1 10^3/uL 0-0.2 Abs Nucleated RBC 0.01 10^3/uL Granulocyte % 71.5 % 38-83 Lymphocyte % 17.3 % Low 25-47 Monocyte % 9.6 % High 1-9 Eosinophil % 0.4 % 0-6 Basophil % 1.2 % 0-2 Nucleated Red Blood Cells % 0.1 Comp Metabolic Panel 06/28/2017 Sodium 129 mmol/L Low 133-145 Potassium 4.2 mmol/L 3.5-5.0 Chloride 97 mmol/L Low 101-111 Co2 Carbon Dioxide 31 mmol/L 22-32 Anion Gap 1 mmol/L Low 2-11 Glucose 103 mg/dL High 70-100 Blood Urea Nitrogen 26 mg/dL High 6-24 Creatinine 1.01 mg/dL 0.67-1.17 BUN/Creatinine Ratio 25.7 High 8-20 Calcium 7.4 mg/dL Low 8.6-10.3 Total Protein 4.4 g/dL Low 6.4-8.9 Albumin 1.6 g/dL Low 3.2-5.2 Globulin 2.8 g/dL 2-4 Albumin/Globulin Ratio 0.6 Low 1-3 Total Bilirubin 0.30 mg/dL 0.2-1.0 Alkaline Phosphatase 33 U/L Low 34-104 Alt 15 U/L 7-52 Ast 25 U/L 13-39 Egfr Non- 83.1 >60 Egfr 106.9 >60 4 Basic Metabolic Panel 09/01/2015 Sodium 131 mmol/L Low 133-145 5 Potassium 3.8 mmol/L 3.5-5.0 5 Chloride 102 mmol/L 101-111 5 Co2 Carbon Dioxide 25 mmol/L 22-32 5 Anion Gap 4 mmol/L 2-11 5 Glucose 155 mg/dL High 70-100 5 Blood Urea Nitrogen 29 mg/dL High 6-24 5 Creatinine 1.08 mg/dL 0.67-1.17 5 BUN/Creatinine Ratio 26.9 High 8-20 5 Calcium 7.3 mg/dL Low 8.6-10.3 5 Egfr Non- 77.8 >60 5 Egfr 100.1 >60 5, 6 CBC Auto Diff 08/04/2015 White Blood Count 8.5 10^3/uL 3.5-10.8 Red Blood Count 6.30 10^6/uL High 4.0-5.4 Hemoglobin 19.3 g/dL High 14.0-18.0 Hematocrit 57 % High 42-52 Mean Corpuscular Volume 91 fL 80-94 Mean Corpuscular Hemoglobin 31 pg 27-31 Mean Corpuscular HGB Conc 34 g/dL 31-36 Red Cell Distribution Width 13 % 10.5-15 Platelet Count 303 10^3/uL 150-450 Mean Platelet Volume 8 um3 7.4-10.4 Abs Neutrophils 6.6 10^3/uL 1.5-7.7 Abs Lymphocytes 1.2 10^3/uL 1.0-4.8 Abs Monocytes 0.5 10^3/uL 0-0.8 Abs Eosinophils 0.1 10^3/uL 0-0.6 Abs Basophils 0 10^3/uL 0-0.2 Abs Nucleated RBC 0.03 10^3/uL Granulocyte % 77.7 % 38-83 Lymphocyte % 14.7 % Low 25-47 Monocyte % 6.4 % 1-9 Eosinophil % 0.7 % 0-6 Basophil % 0.5 % 0-2 Nucleated Red Blood Cells % 0.3 Inr/Protime 08/04/2015 Inr 0.84 Low 0.89-1.11 Laboratory test finding 08/04/2015 Partial Thrombo Time 34.5 seconds 26.0 -36.3 PTT B Type Natriuretic Peptide 13 pg/mL 7 Troponin I 0.00 ng/mL <0.03 8 Comp Metabolic Panel 08/04/2015 Sodium 133 mmol/L 133-145 Potassium 5.7 mmol/L High 3.5-5.0 Chloride 101 mmol/L 101-111 Co2 Carbon Dioxide 31 mmol/L 22-32 Anion Gap 1 mmol/L Low 2-11 Glucose 102 mg/dL High 70-100 Blood Urea Nitrogen 10 mg/dL 6-24 Creatinine 1.05 mg/dL 0.67-1.17 BUN/Creatinine Ratio 9.5 8-20 Calcium 7.6 mg/dL Low 8.6-10.3 Total Protein 5.2 g/dL Low 6.4-8.9 Albumin 1.6 g/dL Low 3.2-5.2 Globulin 3.6 g/dL 2-4 Albumin/Globulin Ratio 0.4 Low 1-3 Total Bilirubin 0.30 mg/dL 0.2-1.0 Alkaline Phosphatase 42 U/L 34-104 Alt 14 U/L 7-52 Ast 15 U/L 13-39 Egfr Non- 80.4 >60 Egfr 103.4 >60 9 Laboratory test finding 08/04/2015 Magnesium 1.8 mg/dL Low 1.9-2.7 Lipase 12 U/L 11.0-82.0 C Reactive Protein < 1.00 mg/L < 5.00 10 TSH (Thyroid Stim Horm) 6.32 ?IU/mL High 0.34-5.60 Urinalysis Profile 08/04/2015 Urine Color Yellow Urine Appearance Cloudy Urine Specific [place] 1.022 1.010-1.030 Urine pH 8.0 5-9 Urine Urobilinogen Negative Negative Urine Ketones Negative Negative Urine Protein 3+(>=500 mg/dL) Negative Urine Leukocytes Negative Negative Urine Blood Negative Negative Urine Nitrite Negative Negative Urine Bilirubin Negative Negative Urine Glucose Negative Negative Urine White Blood Cell Trace(0-5/hpf) Absent Urine Red Blood Cell Trace(0-2/hpf) Absent Urine Bacteria Absent Absent Urine Squamous Epithelial Cell Present Absent Total Protein 24HR Urine 07/16/2015 Urine Collection Time 24 11 Urine Total Volume 950 mL 11 Urine Random Total Protein 486 mg/dL 11 Urine Total Protein/24HR 4617 mg/24Hr High 0-165 11 Laboratory test finding 06/22/2015 Wound Culture/Sensi SEE RESULT BELOW 12 Laboratory test finding 06/12/2015 Urine Random Creatinine 30.23 mg/dL Urine Random Total Protein 17 mg/dL Comp Metabolic Panel 06/12/2015 Sodium 139 mmol/L 133-145 Potassium 4.4 mmol/L 3.5-5.0 Chloride 103 mmol/L 101-111 Co2 Carbon Dioxide 30 mmol/L 22-32 Anion Gap 6 mmol/L 2-11 Glucose 90 mg/dL 70-100 Blood Urea Nitrogen 10 mg/dL 6-24 Creatinine 0.84 mg/dL 0.67-1.17 BUN/Creatinine Ratio 11.9 8-20 Calcium 9.6 mg/dL 8.6-10.3 Total Protein 7.1 g/dL 6.4-8.9 Albumin 4.4 g/dL 3.2-5.2 Globulin 2.7 g/dL 2-4 Albumin/Globulin Ratio 1.6 1-3 Total Bilirubin 0.80 mg/dL 0.2-1.0 Alkaline Phosphatase 32 U/L Low 34-104 Alt 15 U/L 7-52 Ast 16 U/L 13-39 Egfr Non- 104.0 >60 Egfr 133.7 >60 13 Clotest 12/17/2014 Clotest (SEE NOTE) 14 Rapid Influenza A B Antigen 11/18/2014 Rapid Influenza A B (SEE NOTE) 15 Antigen Laboratory test finding 11/17/2014 H.Pylori qualitative (Fma) negative Ua - Micro (Fma) 11/17/2014 Appearance clear Color yellow Glucose, Urine (Fma/CMC/CTX) neg Bilirubin neg Ketones trace SP Grav 1.020 Blood trace-intact PH 7.5 Protein neg Urobil 1.0 Nitrite neg Leukocytes (Fma/CMC/Centrex) neg Hyaline - /Lpf Granular - /Lpf WBC (Fma,Centrex) 2-3 RBC 0-3 Mucus (Fma/CBC/Centrex) - /Lpf Epith - /Lpf Bacteria - /Hpf Amorphous (Fma/CMC/Centrex) - /Lpf Crystals, Fluid (Fma/CMC/CTX) - Z#Comments - Laboratory test finding 11/17/2014 Amylase, Serum 67 U/L 20-105 Comprehensive Metabolic Prof 11/17/2014 Sodium 135 mEq/L 134-149 Potassium 3.6 mEq/L 3.6-5.5 Chloride 97 mEq/L 94-112 Carbon Dioxide 27 mEq/L 21-32 Glucose 131 mg/dL High 70-105 16 BUN 14 mg/dL 6-26 Creatinine 0.8 mg/dL 0.6-1.4 BUN/Creat Ratio 17.5 CALC 8.0-36.0 Calcium 9.4 mg/dL 8.6-10.2 Total Protein 7.3 g/dL 6.4-8.3 Albumin 4.8 g/dL 3.8-5.5 Globulin 2.5 g/dL 2.0-4.8 A/G Ratio 1.9 CALC 0.6-2.3 Alk. Phosphatase 35 U/L 22-95 Alt (SGPT) 20 U/L 7-35 Ast (Sgot) 19 U/L 5-34 Total Bilirubin 0.5 mg/dL 0.2-1.3 Complete Blood Count 11/17/2014 WBC 5.9 x10^3/UL 3.6-9.6 RBC 4.44 x10^6/UL 3.90-5.70 HGB 14.2 g/dL 12.1-17.2 HCT 41 % 36-50 MCV 92.0 fL 82.2-97.4 MCH 32.1 pg 27.6-33.3 MCHC 34.8 g/dL 33.0-35.5 RDW 13.6 % 11.6-13.7 PLT 253 x10^3/UL 150-400 MPV 6.3 fL Low 7.4-10.4 Gran # 4.7 x10^3/UL 1.5-7.2 Lymph# 0.9 x10^3/UL 0.7-4.9 [place]# 0.3 x10^3/UL 0.1-0.9 Gran % 78.1 % High 42.2-75.2 Lymph % 16.5 % Low 20.5-51.1 [place]% 5.4 % 1.7-9.3 Basic Metabolic Profile 12/29/2012 BUN 24 mg/dL 6-26 Calcium 8.0 mg/dL Low 8.6-10.2 17 Chloride 98 mEq/L 94-112 Creatinine 1.1 mg/dL 0.6-1.4 Carbon Dioxide 31 mEq/L 21-32 Glucose 106 mg/dL High 70-105 18 Sodium 141 mEq/L 134-149 Potassium 4.0 mEq/L 3.6-5.5 BUN/Creat Ratio 22.7 Calc 8.0-36.0 Comprehensive Metabolic Prof 11/06/2012 Albumin 1.9 g/dL Low 3.8-5.5 19 Alk. Phos. 51 U/L 22-95 Alt (SGPT) 22 U/L 10-40 Ast (Sgot) 23 U/L 5-34 BUN 21 mg/dL 6-26 Calcium 7.6 mg/dL Low 8.6-10.2 20 Chloride 100 mEq/L 94-112 Creatinine 1.1 mg/dL 0.6-1.4 Carbon Dioxide 31 mEq/L 21-32 Glucose 91 mg/dL 70-105 Sodium 140 mEq/L 134-149 Total Bilirubin 0.1 mg/dL Low 0.2-1.3 21 Total Protein 4.5 g/dL Low 6.3-8.1 22 Potassium 4.6 mEq/L 3.6-5.5 Globulin 2.6 g/dL 2.0-4.8 A/G Ratio 0.7 Calc 0.6-2.3 BUN/Creat Ratio 18.7 Calc 8.0-36.0 Laboratory test finding 11/06/2012 TSH 6.61 mIU/L High 0.50-6.00 23 Ua - Micro (a) 11/06/2012 Appearance CLEAR Color YELLOW Glucose, Urine (Fma/CMC/CTX) NEG Bilirubin NEG Ketones NEG SP Grav 1.025 Blood SMALL PH 7.0 Protein 4+ Urobil 1.0 Nitrite NEG Leukocytes (Fma/CMC/Centrex) NEG Hyaline - /Lpf Granular - /Lpf WBC (Fma,Centrex) 0-1 RBC 3-5 Mucus (Fma/CBC/Centrex) SM AMT /Lpf Epith - /Lpf Bacteria - /Hpf Amorphous (Fma/CMC/Centrex) SM AMT /Lpf Crystals, Fluid (Fma/CMC/CTX) - Z#Comments - CBC Electronic (a) 11/06/2012 WBC 6.8 3.6-9.6 RBC 5.40 3.90-5.70 Hemoglobin (Fma/CMC/CTX) 16.8 g/dL 12.1 - 17.2 Hematocrit (Fma/CMC/CTX) 49.8 % 36.1 - 50.3 Platelets 313 10^3/ul 150-400 Lymph% 24.5 20.5-51.1 Mixed% 4.6 Neutrophils % 70.9 Mean Corpuscular Vol 92 82.2-97.4 Mean Corpuscular Hemoglobin 31.0 27.6-33.3 Mean Corpuscular Hemo Concen 33.7 32.0-36.0 RDW 11.5 Low 11.6-13.7 Mean Platelet Volume 6.2 Low 6.5-11.0 Lyme Screen 03/20/2012 Lyme Disease Serology Negative Negative 24 1 1 SST sent 2 consistent w/ previous results 3 Caul Puller: [id number] 4 Because ethnic data is not always readily available, this report includes an eGFR for both -Americans and non- Americans. The National Kidney Disease Education Program (NKDEP) does not endorse the use of the MDRD equation for patients that are not between the ages of 18 and 70, are , have extremes of body size, muscle mass, or nutritional status, or are non- or non-. According to the National Kidney Foundation, irrespective of diagnosis, the stage of the disease is based on the level of kidney function: Stage Description GFR(mL/min/1.73 m(2)) 1 Kidney damage with normal or decreased GFR 90 2 Kidney damage with mild decrease in GFR 60-89 3 Moderate decrease in GFR 30-59 4 Severe decrease in GFR 15-29 5 Kidney failure <15 (or dialysis) 5 PT IS A HOLD/CALL BUT DR AUGUST IS CALLING THE PATIENT AT HOME SO THE PATIENT IS LEAVING. PLEASE 6 Because ethnic data is not always readily available, this report includes an eGFR for both -Americans and non- Americans. The National Kidney Disease Education Program (NKDEP) does not endorse the use of the MDRD equation for patients that are not between the ages of 18 and 70, are , have extremes of body size, muscle mass, or nutritional status, or are non- or non-. According to the National Kidney Foundation, irrespective of diagnosis, the stage of the disease is based on the level of kidney function: Stage Description GFR(mL/min/1.73 m(2)) 1 Kidney damage with normal or decreased GFR 90 2 Kidney damage with mild decrease in GFR 60-89 3 Moderate decrease in GFR 30-59 4 Severe decrease in GFR 15-29 5 Kidney failure <15 (or dialysis) 7 >100 to <200 pg/mL: likely compensated congestive heart failure (CHF) 200 to 400 pg/mL: likely moderate CHF >400 pg/mL: likely moderate to severe CHF 8 Reference Range and Interpretation: TnI (ng/mL) Interpretation Less Than 0.03 ng/mL Not supportive of diagnosis of [place] 0.03 - 0.50 ng/mL Indeterminate: suggest serial studies if clinically indicated. Greater than 0.5 ng/mL Consistent with diagnosis of [place] 9 Because ethnic data is not always readily available, this report includes an eGFR for both -Americans and non- Americans. The National Kidney Disease Education Program (NKDEP) does not endorse the use of the MDRD equation for patients that are not between the ages of 18 and 70, are , have extremes of body size, muscle mass, or nutritional status, or are non- or non-. According to the National Kidney Foundation, irrespective of diagnosis, the stage of the disease is based on the level of kidney function: Stage Description GFR(mL/min/1.73 m(2)) 1 Kidney damage with normal or decreased GFR 90 2 Kidney damage with mild decrease in GFR 60-89 3 Moderate decrease in GFR 30-59 4 Severe decrease in GFR 15-29 5 Kidney failure <15 (or dialysis) 10 Acute inflammation: >10.00 11 07/16/15 0630 TO 07/17/15 0630 12 SEE RESULT BELOW Name: BRADLY DUKE JR : [address]: Antwan August MD Acct: [id number] Unit: [id number] AGE: 35 Location: [facility] Re06/22/15 SEX: M Status: REG REF SPEC: [id number] RESHMA: 06/22/15-[address] [facility] [address]: Antwan August MD REQ: [id number] RECD: 06/22/15 STATUS: COMP _ SOURCE: WOUND SPDESC:KNEE RIGHT ORDERED: Culture Stain COMMENTS: Procedure Result Verified Site Wound/Misc Gram Stain Final 06/23/15- 1533 ML 3+ Epithelial Cells No Neutrophils Observed No Organisms Seen Wound/Misc Culture Final 06/25/15- 1050 ML Organism 1 NORMAL JHONNY Quantity 1+ * ML - MAIN LAB ([facility]1) . END OF REPORT * ML=Testing performed at Main Lab DEPARTMENT OF PATHOLOGY, [address] [place] [address] Zak Hernandez M.D. Director [facility] # [id number] 13 Because ethnic data is not always readily available, this report includes an eGFR for both -Americans and non- Americans. The National Kidney Disease Education Program (NKDEP) does not endorse the use of the MDRD equation for patients that are not between the ages of 18 and 70, are , have extremes of body size, muscle mass, or nutritional status, or are non- or non-. According to the National Kid[employer] Foundation, irrespective of diagnosis, the stage of the disease is based on the level of kidney function: Stage Description GFR(mL/min/1.73 m(2)) 1 Kidney damage with normal or decreased GFR 90 2 Kidney damage with mild decrease in GFR 60-89 3 Moderate decrease in GFR 30-59 4 Severe decrease in GFR 15-29 5 Kidney failure <15 (or dialysis) 14 RUN DATE: 12/18/14 [facility] LAB LIVE PAGE 1 RUN TIME: [address] [place] [id number] Specimen Inquiry Name: BRADLY DUKE JR : [address]: Hari Mckeon MD Acct: [id number] Unit: [id number] AGE: 34 Location: [facility] Re12/17/14 SEX: M Status: REG REF SPEC: [id number] RESHMA: 12/17/14-[address] [facility] [address]: Hari Mckeon MD REQ: [id number] RECD: 12/17/14 STATUS: IQRA ALONZO DR: Antwan August MD _ SOURCE: [facility]: ORDERED: Clotest Procedure Result Verified Site Clotest Final 12/18/14818 ML Clotest Negative * ML - MAIN LAB ([facility]) . END OF REPORT * ML=Testing performed at Main Lab DEPARTMENT OF PATHOLOGY, [address] [place] [address] Zak Hernandez M.D. Director AMALIA # [id number] 15 RUN DATE: 11/18/14 [facility] LAB LIVE PAGE 1 RUN TIME: [address] [place] [address] Specimen Inquiry Name: BRADLY DUKE JR : [address]: Yareli Pickering MD Acct: [id number] Unit: [id number] AGE: 34 Location: [facility] Re11/18/14 SEX: M Status: DEP ER SPEC: [id number] RESHMA: 11/18/14-[address] [facility] [address]: Lynne Knapp NP REQ: [id number] RECD: 11/18/14 STATUS: IQRA ALONZO DR: Yareli August MD _ SOURCE: [facility]: ORDERED: Rapid Flu A B Procedure Result Verified Site Rapid Influenza A B Antigen Final 11/18/14- 1920 ML Organism 1 Negative Influenza A Organism 2 POSITIVE INFLUENZA B Antigen testing by enzyme immunoassay. Cell culture testing can be performed to confirm negative test results and to assist in detecting other viruses that can produce similar clinical symptoms. Please notify Microbiology Lab if further testing is desired. * ML - MAIN LAB ([facility]) . END OF REPORT * ML=Testing performed at Main Lab DEPARTMENT OF PATHOLOGY, [address] [place] [address] Zak Hernandez M.D. Director [facility] # [id number] 16 NON-FASTING 17 RESULT SAHIL'D 18 RESULT SAHIL'D 19 result sahil'd 20 result sahil'd 21 result sahil'd 22 result sahil'd 23 RESULT SAHIL;'D 24 Serologic response to B. burgdorferi infection is not detected, but cannot rule out early infection during which low or undetectable antibody levels to B. burgdorferi may be present. If clinically indicated, a new serum specimen should be submitted in 7-14 days. Test Performed by: [facility] - [address] [address] [employer]: Daniel Major III, M.D. Procedures Date CPT Code Description Status 08/04/2015 04757 Electrocardiogram Complete Completed Encounters Type Date Location Provider CPT E/M Dx Office Visit 07/14/2018 11:40a [facility] Office Antwan August M.D. 97326 K86.89 N20.1 Office Visit 11/08/2017 2:30p [facility] Anay Remy, PACK PULLER 00846 Z23 R10.10 Office Visit 07/02/2017 11:40a [facility] Antwan August M.D. 04918 N20.0 N04.9 Office Visit 04/24/2017 4:30p [facility] Antwan August M.D. 27175 N04.9 Office Visit 09/15/2015 6:40p [facility] Office Antwan August M.D. 44517 N04.9 Office Visit 09/01/2015 6:30p [facility] Office Antwan August M.D. 13814 N04.9 Office Visit 08/04/2015 10:00a [facility] Office Antwan August M.D. 67411 N04.9 Office Visit 06/22/2015 2:20p [facility] Antwan August M.D. 76853 R82.99 R21 Office Visit 12/21/2014 3:15p [facility] Office Saskia HilRachel flores 20353 530.10 789.09 Office Visit 12/01/2014 4:20p [facility] Antwan August M.D. 62020 V70.0 789.00 Office Visit 11/17/2014 3:15p [facility] Office Carol MixonbhartWILLIAMP 68987 789.06 789.09 Office Visit 08/19/2014 3:00p [facility] Office Ciarra Morales M.D. 20322 789.06 Office Visit 01/09/2013 10:50a [facility] Dash Devine M.D. 79570 581.9 Office Visit 12/29/2012 10:40a [facility] Dash Devine M.D. 55215 581.9 Office Visit 12/08/2012 4:10p [facility] Office Dash Devine M.D. 55404 581.9 Office Visit 11/06/2012 3:45p [facility] Emilia Rodriguez-C 37565 729.81 Office Visit 03/10/2012 11:40a [facility] Dash Devine M.D. 02541 789.00 Office Visit 02/21/2012 8:10p [facility] Office Dash Devine M.D. 39440 553.20 Office Visit 07/17/2007 8:20a [facility] Office Dash Devine M.D. 66111 455.2 521.33 305.1 Plan of Care Future Appointment(s):08/14/2018 3:40 pm - Antwan August M.D. at Main Bzocwt6108/08/2018 - Carol Landa, FNPR10.816 Epigastric abdominal ngpgmfjafeH10.83 Other fatigueNew Labs:CBC Electronic-ALL Lab CompaniComments: The patient was instructed to call or return to the office if there was no improvement .N04.9 Nephrotic syndrome with unspecified morphologic iwuxuycU00.00 Insomnia, unspecifiedAllComments:~B_~U_Medication Management~b_~u _ Patient Understands medications he 's taking? Yes No Are there Barriers to Adherence? Yes No Has the patient been asked about herbal supplements and therapies, and OTC meds? Yes No As always, we strongly encourage a healthy diet and makingphysical activity a part of your every day life. If you have questions about how or where to start, please contact the office.
[2018-09-02 14:51] VITALS: BP 130/82
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
== END 2018-09-02 15:21 | disposition home or self-care (01) ==
LOC: UCCORT 14:35
DX: S39.94XA Unspecified injury of external genitals, initial encounter (principal); X58.XXXA Exposure to other specified factors, initial encounter; Y92.9 Unspecified place or not applicable; Z87.891 Personal history of nicotine dependence
CPT/HCPCS: 99211; G0463

== ENCOUNTER 2018-10-31 13:55 | Emergency (ER) | payer BC ==
--- NOTE | 2018-10-31 15:54 | ED ---
GI/ HPI - HPI Summary HPI Summary: A 38 y/o male presents to [facility] with a chief complaint of lower abdominal pain today. 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 He reports that he was told by a doctor in [place] that he probably has a UTI and has been on abx for four days now. He also started steroids. He has had nephrotic syndrome and has been dealing with urinary problems for 8 years. He currently has hematuria and nausea. He denies fevers, chills or vomiting. He currently rates his pain as a 4/1 in severity. He claims that using a heat pad alleviates his pain. - History of Current Complaint Chief Complaint: EDAbdPain Stated Complaint: ADB, BLOOD IN URINE PER PT Hx Obtained From: Patient Onset/Duration: Started Days Ago, Still Present Severity: Moderate Current Severity: Moderate Pain Intensity: 4 - out of 10 Location of Pain: Diffuse - lower Pain Characteristics: Unable to describe Associated Signs and Symptoms: Positive: Hematuria Aggravating Factor(s): Nothing Alleviating Factor(s): Heat - Allergy/Home Medications Allergies/Adverse Reactions: Allergies Allergy/AdvReac Type Severity Reaction Status Date / Time No Known Allergies Allergy Verified 10/31/18 14:12 PMH/Surg Hx/FS Hx/Imm Hx Endocrine/Hematology History: Denies: Hx Diabetes, Hx Systemic Lupus Erythematosus, Hx Thyroid Disease Cardiovascular History: Denies: Hx Congestive Heart Failure, Hx Hypertension, Hx Pacemaker/ICD Respiratory History: Denies: Hx Asthma, Hx Chronic Obstructive Pulmonary Disease (COPD) GI History: Denies: Hx Ulcer History: Reports: Other Problems/Disorders - MINIMAL CHANGE DISEASE/ NEPHROTIC SYNDROME Denies: Hx Dialysis Comment Only: Hx Renal Disease - 2 YEARS AGO AN EPISODE OF NEPHROTIC SYNDROME. Musculoskeletal History: Denies: Hx Rheumatoid Arthritis Sensory History: Denies: Hx Hearing Aid Psychiatric History: Denies: Hx Panic Disorder - Cancer History Hx Chemotherapy: No - Surgical History Surgery Procedure, Year, and Place: kidney biopsy Infectious Disease History: No Infectious Disease History: Denies: Hx Clostridium Difficile, Hx Hepatitis, Hx Human Immunodeficiency Virus (HIV), Hx of Known/Suspected MRSA, Hx Shingles, Hx Tuberculosis, Hx Known/ Suspected VRE, Hx Known/Suspected VRSA, History Other Infectious Disease, Traveled Outside the [place] in Last 30 Days - Family History Known Family History: Positive: Cardiac Disease - congestive heart failure, Hypertension - mother, Diabetes - mother Negative: Renal Disease - Social History Alcohol Use: None Hx Substance Use: No Substance Use Type: Reports: None Hx Tobacco Use: Yes Smoking Status (MU): Never Smoked Tobacco Type: Smokeless Tobacco Amount Used/How Often: 1 can in 2 days Length of Time of Smoking/Using Tobacco: since age 13 Review of Systems Negative: Fever, Chills Positive: Abdominal Pain. Negative: Vomiting Positive: dysuria, hematuria All Other Systems Reviewed And Are Negative: Yes Physical Exam - Summary Physical Exam Summary: GENERAL: Patient is a well-developed and nourished M who is lying comfortable in the stretcher. Patient is not in any acute respiratory distress. HEAD AND FACE: Normocephalic EYES: PERRLA, EOMI x 2. EARS: Hearing grossly intact. MOUTH: Oropharynx within normal limits. NECK: Supple, trachea is midline, no adenopathy, no JVD, no carotid bruit. CHEST: Symmetric, no tenderness at palpation LUNGS: Clear to auscultation bilaterally. No wheezing or crackles. CVS: Regular rate and rhythm, S1 and S2 present, no murmurs or gallops appreciated. ABDOMEN: Mild TTP suprapubic region no rebound or guarding. Bowel sounds are normal. No abdominal abnormal pulsations. EXTREMITIES: Full ROM in all major joints, no edema, no cyanosis or clubbing. NEURO: Alert and oriented x 3. No acute neurological deficits. Speech is normal and follows commands. SKIN: Dry and warm Triage Information Reviewed: Yes Vital Signs On Initial Exam: Initial Vitals Temp Pulse Resp BP Pulse Ox 100.1 F 83 16 115/83 96 10/31/18 14:08 10/31/18 14:08 10/31/18 14:08 10/31/18 14:08 10/31/18 14:08 Vital Signs Reviewed: Yes Diagnostics - Vital Signs Vital Signs Temp Pulse Resp BP Pulse Ox 10/31/18 14:08 100.1 F 83 16 115/83 96 - Laboratory Result Diagrams: 10/31/18 16:32 10/31/18 16:32 Lab Statement: Any lab studies that have been ordered have been reviewed, and results considered in the medical decision making process. - Ultrasound No standard instances Ultrasound Interpretation Completed By: Radiologist Summary of Ultrasound Findings: Renal ultrasound impression: Normal ultrasound of the kidneys. ED physician has reviewed this imaging report. Re-Evaluation - Re-Evaluation First Eval Re-Evaluation Time: 17:34 Change: Unchanged Comment: Discussed results. Pt still reports his pain as a 4/10. GIGU Course/Dx - Course Course Of Treatment: A 38 y/o male presents to [facility] with a chief complaint of lower abdominal pain today. 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 Workup is remarkable. The physical exam revealed Mild TTP suprapubic region no rebound or guarding. Renal ultrasound impression: Normal ultrasound of the kidneys. Bloodwork chemstries and urines obtained and are WNL. Upon re-eval the patient was still having the same amount of pain as earlier. He will be signed out from Dr. Marshall to Dr. Mcclure upon shift change at 19:00 10/31/[address] abdomen/pelvis. - Diagnoses Provider Diagnoses: Flank pain, Nephrotic syndrome Discharge - Sign-Out/Discharge Documenting (check all that apply): Sign-Out Patient Signing out patient TO: Ander Mcclure - pending CT abdomen/pelvis Patient Received Moderate/Deep Sedation with Procedure: No - Discharge Plan Condition: Improved Disposition: HOME Patient Education Materials: Flank Pain (ED) Referrals: Antwan August MD [Primary Care Provider] - Additional Instructions: Drink plenty of fluids. Call your doctor in the morning to schedule prompt follow-up. Return with uncontrolled pain, worse, new symptoms or other concerns. CT scan is negative. - Billing Disposition and Condition Condition: IMPROVED Disposition: Home - Attestation Statements Document Initiated by Prasanna: Yes Documenting Scribe: Renato Mauricio Provider For Whom Prasanna is Documenting (Include Credential): Jemima Marshall MD Scribe Attestation: I, Renato Mauricio, scribed for Jemima Marshall MD on 11/01/18 at 0737. Scribe Documentation Reviewed: Yes Provider Attestation: The documentation as recorded by the Renato gomez accurately reflects the service I personally performed and the decisions made by me, Abbi Marshall MD Status of Scribe Document: Viewed
[2018-10-31 16:51] LABS: ABS Basophils 0 10^3/ul (0-0.2); ABS Eosinophils 0 10^3/ul (0-0.6); ABS Lymphocytes 0.7 10^3/ul (1.0-4.8); ABS Monocytes 0.2 10^3/ul (0-0.8); ABS Neutrophils 7.1 10^3/ul (1.5-7.7); ABS Nucleated RBC 0 10^3/ul; Eosinophil % 0 %; Hematocrit 46 % (36-46); Lymphocyte % 9.2 %; Mean Corpuscular HGB Conc 35 g/dL (31-36); Mean Corpuscular Hemoglobin 32 pg (27-31); Mean Corpuscular Volume 91 fL (80-94); Mean Platelet Volume 7.1 fL (7.4-10.4); Nucleated Red Blood Cells % 0; Platelet Count 342 10^3/uL (150-450); Red Blood Count 5.06 10^6 /uL (4.18-5.48); Red Cell Distribution Width 13 % (10.5-15)
[2018-10-31 17:04] LABS: Urine Appearance Clear; Urine Bacteria Absent (Absent); Urine Bilirubin Negative (Negative); Urine Blood 1+ (Negative); Urine Color Straw; Urine Glucose Negative (Negative); Urine Ketones Negative (Negative); Urine Nitrite Negative (Negative); Urine Protein 3+(>=500 mg/dL) (Negative); Urine Red Blood Cell Trace(0-2/hpf) (Absent); Urine Specific Gravity 1.003 (1.010-1.030); Urine Urobilinogen Negative (Negative); Urine White Blood Cell Absent (Absent)
[2018-10-31 17:12] LABS: ALT 15 U/L (7-52); AST 13 U/L (13-39); Albumin 3.5 g/dL (3.2-5.2); Albumin/Globulin Ratio 1.2 (1-3); Alkaline Phosphatase 37 U/L (34-104); Anion Gap 4 mmol/L (2-11); Blood Urea Nitrogen 15 mg/dL (6-24); C Reactive Protein < 1.00 mg/L (<8.01); CO2 Carbon Dioxide 32 mmol/L (22-32); Calcium 8.8 mg/dL (8.6-10.3); Chloride 103 mmol/L (101-111); EGFR African American 108.7 (>60); EGFR Non-African American 89.8 (>60); Globulin 2.9 g/dL (2-4); Glucose 131 mg/dL (70-100); Potassium 3.9 mmol/L (3.5-5.0); Sodium 139 mmol/L (135-145); Total Protein 6.4 g/dL (6.4-8.9)
--- NOTE | 2018-10-31 19:31 | ED ---
Progress - Progress Note Progress Note: Receiving sign out from Dr. Marshall, pending CT A/P. CT A/P: Punctate nonobstructing calyceal calculi in the right kidney. No hydronephrosis. ED physician reviewed radiology report. Pt will be discharged home with final dx of flank pain and nephrotic syndrome. Course/Dx - Course Course Of Treatment: CT scan is negative for passing ureteral stone. Patient's pain is gone. He is discharged in good condition. - Diagnoses Provider Diagnoses: Flank pain, Nephrotic syndrome Discharge - Sign-Out/Discharge Documenting (check all that apply): Patient Departure - Discharge, Receiving Sign-Out Receiving patient FROM: Jemima Marshall Patient Received Moderate/Deep Sedation with Procedure: No - Discharge Plan Condition: Improved Disposition: HOME Patient Education Materials: Flank Pain (ED) Referrals: Antwan August MD [Primary Care Provider] - Additional Instructions: Drink plenty of fluids. Call your doctor in the morning to schedule prompt follow-up. Return with uncontrolled pain, worse, new symptoms or other concerns. CT scan is negative. - Billing Disposition and Condition Condition: IMPROVED Disposition: Home - Attestation Statements Document Initiated by Scribe: Yes Documenting Scribe: Michaela Winn Provider For Whom Scribe is Documenting (Include Credential): Ander Mcclure MD Scribe Attestation: Michaela Abdul scribed for Ander Mcclure MD on 11/01/18 at 0017. Scribe Documentation Reviewed: Yes Provider Attestation: The documentation as recorded by the Michaela gomez accurately reflects the service I personally performed and the decisions made by , Ander Mcclure MD Status of Scribe Document: Viewed
[2018-10-31 19:39] VITALS: BP 139/79
== END 2018-10-31 19:38 | disposition home or self-care (01) ==
LOC: ED 13:55
DX: R10.84 Generalized abdominal pain (principal); N04.9 Nephrotic syndrome with unspecified morphologic changes; R31.9 Hematuria, unspecified
CPT/HCPCS: 36415; 74176; 76775; 80053; 81003; 81015; 83605; 83690; 85025; 86140; 87040; 99283

== ENCOUNTER 2019-06-03 13:10 | Emergency (ER) | payer BC ==
--- OUTSIDE RECORDS SUMMARY | 2019-06-03 13:30 | XMS REPORT | Continuity of Care Document ---
:1980 External Reference #:[id number] Author Name Kait Mclaughlin PA-C Address [address] [place] [address] Care Team Providers Name Role Phone Antwan August MD - Family Medicine Care Team Information Chief Optometry Service Problems Active Problems Provider Date Indigestion Hari Mckeon M.D. Onset: 12/14/2014 Epigastric pain Kait Mclaughlin PA-C Onset: 11/11/2018 Right upper quadrant pain Kait Mclaughlin PA-C Onset: 11/11/2018 Abdominal pain Kait Mclaughlin PA-C Onset: 04/21/2019 Congenital malformation of pancreas Kait Mclaughlin PA-C Onset: 2018 Idiopathic acute pancreatitis Kait Mclaughlin PA-C Onset: 11/11/2018 Social History Type Date Description Comments Sex Unknown Smokeless Tobacco regular use of chewing tobacco ETOH Use Denies alcohol use Tobacco Use Start: Unknown Patient has never smoked Smoking Status Reviewed: 04/21/19 Patient has never smoked Allergies, Adverse Reactions, Alerts Active Allergies Reaction Severity Comments Date Perindopril 10/28/2018 Inactive Allergies NKDA 12/14/2014 Medications Active Medications SIG Qnty Indications Ordering Provider Date Hyoscyamine Sulfate 1 tablet by mouth 90tabs R10.10 Connie 04/21/2019 every four hours MD Alison 0.125mg Tablets as needed for abdominal cramps/pain History Medications No Active Medications Unknown 04/21/2019 - 04/21/2019 Immunizations Description No Information Available Vital Signs Date Vital Result Comment 04/21/2019 1:58pm Height 64 inches 5'4" Weight 146.00 lb with shoes BP Systolic 113 mmHg BP Diastolic 77 mmHg Heart Rate 65 /min BMI (Body Mass Index) 25.1 kg/m2 11/11/2018 8:43am Height 64 inches 5'4" Weight 140.00 lb BP Systolic 119 mmHg BP Diastolic 81 mmHg Heart Rate 78 /min BMI (Body Mass Index) 24.0 kg/m2 Results Test Date Facility Test Result H/L Range Note [facility] Microscopic(!) 10/31/2018 [facility] WBC <pending> [facility] RBC <pending> [facility] Epithelial Cells <pending> [facility] Crystals <pending> [facility] Bacteria <pending> [facility] Mucous <pending> [facility] Amorphous <pending> [facility] Yeast <pending> [facility] Casts <pending> Laboratory test 10/31/2018 [facility] Lactic Acid <pending> finding Ser/Plas Mass/Vol CMP(!) 10/31/2018 [facility] Sodium(!) <pending> Potassium(!) <pending> Chloride Serum/Plasma(!) <pending> Carbon Dioxide Ser/Plasm(!) <pending> BUN - Urea Nitrogen(!) <pending> Calcium Ser/Plasma Mass/Vol(!) <pending> Creatinine Serum Mass/Vol(!) <pending> Glucose Serum(!) <pending> BUN/Creatinine Ratio(!) <pending> Albumin Serum/Plasma(!) <pending> Alkaline Phosphatase(!) <pending> Bilirubin Total Mass/Vol(!) <pending> Ast - Sgot <pending> Alt - SGPT <pending> Protein Total <pending> Laboratory test 10/31/2018 [facility] Lipase Ser/Plas (!) <pending> finding C-Reative Protein <pending> CBC W/Auto 10/31/2018 [facility] White Blood <pending> Differential(!) Count Ser Auto CNT RBC Red Blood Count <pending> Hemoglobin Blood <pending> Hematocrit <pending> MCV (Corpuscular Volume) <pending> MCH (Corpuscular Hemoglobin) <pending> MCHC (Corpuscular Hemog Conc) <pending> RDW <pending> Platelet Count Blood Auto CNT <pending> MPV <pending> Lymph% <pending> [place]% <pending> Neutrophil % <pending> Absolute Lymphocytes <pending> Absolute Monocytes <pending> Absolute Neutrophils <pending> Xray 10/31/2018 [facility] [place], Abd & Pelvis W/O Contrast <pending> Xray 10/31/2018 [facility] [place] US Renal Complete <pending> Procedures Description No Information Available Medical Devices Description No Information Available Encounters Type Date Location Provider Dx Diagnosis Office Visit 11/11/2018 Gastroenterology Kait Galindo R10.13 Epigastric pain 8:45a [facility] R10.11 Right upper quadrant pain K85.00 Idiopathic acute pancreatitis without necrosis or infection 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 Assessments Date Code Description Provider 04/21/2019 R10.10 Upper abdominal pain, unspecified Kait Mclaughlin PA -C 11/11/2018 R10.13 Epigastric pain Kait Mclaughlin PA-C 11/11/2018 R10.11 Right upper quadrant pain Kait Mclaughlin PA-C 11/11/2018 K85.00 Idiopathic acute pancreatitis without Kait Mclaughlin , PA-C necrosis or infection 11/11/2018 Q45.3 Other congenital malformations of Kait Mclaughlin, PA- C pancreas and pancreatic duct Plan of Treatment 04/21/2019 - GAEL EdwardsCR10.10 Upper abdominal pain, unspecifiedNew Medication:Hyoscyamine Sulfate 0.125 mg - 1 tablet by mouth every four hours as needed for abdominal cramps/pain Functional Status Description No Information Available Mental Status Description No Information Available Referrals Description No Information Available
--- OUTSIDE RECORDS SUMMARY | 2019-06-03 13:30 | XMS REPORT | Continuity of Care Document ---
:1980 External Reference #:[id number] Author Name Ruth Erazo MD (transmitted by agent of provider Ines Chavez) Address [address] [place] [id number] Care Team Providers Name Role Phone Antwan August MD - Family Care Team Information Distributor Operator [phone] Medicine Problems Description No Information Available Social History Type Date Description Comments Sex Unknown Smokeless Tobacco Current Smokeless 1 can of chew every Tobacco User, Uses 10 other day Times Daily ETOH Use Denies alcohol use Tobacco Use Start: Unknown Patient has never - pt admits to smoked chewing tobacco daily Recreational Drug Use Denies Drug Use Smoking Status Reviewed: 03/18/19 Patient has never - pt admits to smoked chewing tobacco daily Exercise Type/Frequency Exercises regularly daily Allergies, Adverse Reactions, Alerts Active Allergies Reaction Severity Comments Date NKDA 02/13/2019 Hay sneeze 02/13/2019 Medications Description No Active Medications Immunizations Description No Information Available Vital Signs Date Vital Result Comment 03/18/2019 9:28am Heart Rate 72 /min BP Systolic Sitting 108 mmHg BP Diastolic Sitting 82 mmHg Respiratory Rate 12 /min Body Temperature 97.7 F 02/13/2019 9:35am Height 64 inches 5'4" Weight 145.00 lb Heart Rate 72 /min BP Systolic Sitting 122 mmHg BP Diastolic Sitting 88 mmHg Respiratory Rate 16 /min Body Temperature 97.6 F BMI (Body Mass Index) 24.9 kg/m2 Results Description No Information Available Procedures Description No Information Available Medical Devices Description No Information Available Encounters Type Date Location Provider Dx Diagnosis Office Visit 03/18/2019 [facility] Almanzar R10.13 Epigastric pain 9:30a [facility] MD Office Visit 02/13/2019 Cynthia Almanzar K85.80 Other acute 9:30a [facility] MD pancreatitis without necrosis or infection Office Visit 02/11/2019 [facility] Ruth N04.9 Nephrotic syndrome 11:00a MD Kacey with unspecified morphologic changes N18.9 Chronic kidney disease, unspecified R80.9 Proteinuria, unspecified Assessments Date Code Description Provider 03/18/2019 R10.13 Epigastric pain Harshal Turner MD 02/13/2019 K85.80 Other acute pancreatitis without necrosis or Harshal Turner MD infection 02/11/2019 N04.9 Nephrotic syndrome with unspecified Ruth Erazo MD morphologic changes 02/11/2019 N18.9 Chronic kidney disease, unspecified Ruth Erazo MD 02/11/2019 R80.9 Proteinuria, unspecified Ruth Erazo MD Plan of Treatment 03/18/2019 - Harshal Turner, MDR10.13 Epigastric painComments:Postprandial epigastric pain concerning for likely gallbladder etiology. We have a long talk about his pain and his symptoms. We reviewed gallbladder anatomy as it pertains to gallbladder surgery we discussed risks including but not limited to bleeding infection injury to intra-abdominal contents including the bowel the bile duct the liver, cystic duct leak no relief of symptoms. We discussed thathe would like to talk to his primary analytics architect about potential medication to help with "digestion". He will see me here at the end of March for follow-up. I told him that this will be a discussion and agreement between he and I that if his pain persists and there is no other relief and he is well off his steroids and does not have any other issues medically active that we can consider robotic cholecystectomy understanding that this may or may not relieve his discomfort. He and his just had a baby and are busy with that and agreed to follow-up later this month with consideration for cholecystectomy in early April if his symptoms persist. Functional Status Description No Information Available Mental Status Description No Information Available Referrals Description No Information Available
[2019-06-03 13:33] VITALS: BP 95/68
--- NOTE | 2019-06-03 13:48 | ED ---
Throat Pain/Nasal Congestion - HPI Summary HPI Summary: 39 yr old male with the complaint of runny nose post nasal drip, frontal and maxillary sinus pain and pressure. He states he just doesn't feel well, and he has had a lot of coughing. He states he has pain in his face that is moderate. He is having yellow nasal drainage. - History of Current Complaint Chief Complaint: UCGeneralIllness Time Seen by Provider: 06/03/19 13:30 - Allergies/Home Medications Allergies/Adverse Reactions: Allergies Allergy/AdvReac Type Severity Reaction Status Date / Time No Known Allergies Allergy Verified 06/03/19 13:33 Home Medications: Home Medications Hyoscyamine Sulfate 0.125 mg PO DAILY PRN 06/03/19 [History Confirmed 06/03/19] PMH/Surg Hx/FS Hx/Imm Hx Endocrine/Hematology History: Denies: Hx Diabetes, Hx Systemic Lupus Erythematosus, Hx Thyroid Disease Cardiovascular History: Denies: Hx Congestive Heart Failure, Hx Hypertension, Hx Pacemaker/ICD Respiratory History: Denies: Hx Asthma, Hx Chronic Obstructive Pulmonary Disease (COPD) GI History: Denies: Hx Ulcer History: Reports: Other Problems/Disorders - MINIMAL CHANGE DISEASE/ NEPHROTIC SYNDROME Denies: Hx Dialysis Comment Only: Hx Renal Disease - 2 YEARS AGO AN EPISODE OF NEPHROTIC SYNDROME. Musculoskeletal History: Denies: Hx Rheumatoid Arthritis Sensory History: Denies: Hx Hearing Aid Psychiatric History: Denies: Hx Panic Disorder - Cancer History Hx Chemotherapy: No - Surgical History Surgery Procedure, Year, and Place: kidney biopsy Infectious Disease History: No Infectious Disease History: Denies: Hx Clostridium Difficile, Hx Hepatitis, Hx Human Immunodeficiency Virus (HIV), Hx of Known/Suspected MRSA, Hx Shingles, Hx Tuberculosis, Hx Known/ Suspected VRE, Hx Known/Suspected VRSA, History Other Infectious Disease, Traveled Outside the [place] in Last 30 Days - Family History Known Family History: Positive: Cardiac Disease - congestive heart failure, Hypertension - mother, Diabetes - mother Negative: Renal Disease - Social History Occupation: Employed Full-time Alcohol Use: None Hx Substance Use: No Substance Use Type: Reports: None Hx Tobacco Use: Yes Smoking Status (MU): Never Smoked Tobacco Type: Smokeless Tobacco Amount Used/How Often: 1 can in 2 days Length of Time of Smoking/Using Tobacco: since age 13 Review of Systems Constitutional: Negative Positive: Nasal Discharge, Other - sinus pain, pressure Positive: Cough All Other Systems Reviewed And Are Negative: Yes Physical Exam Triage Information Reviewed: Yes Vital Signs On Initial Exam: Initial Vitals Temp Pulse Resp BP Pulse Ox 99.9 F 75 16 95/68 98 06/03/19 13:29 06/03/19 13:29 06/03/19 13:29 06/03/19 13:29 06/03/19 13:29 Vital Signs Reviewed: Yes Appearance: Positive: Well-Appearing, No Pain Distress Skin: Positive: Warm, Skin Color Reflects Adequate Perfusion Head/Face: Positive: Normal Head/Face Inspection Eyes: Positive: EOMI ENT: Positive: Pharynx normal, Nasal congestion, Nasal drainage, TMs normal, Sinus tenderness Neck: Positive: Nontender Respiratory/Lung Sounds: Positive: Clear to Auscultation, Breath Sounds Present Cardiovascular: Positive: RRR. Negative: Murmur Abdomen Description: Negative: Distended Musculoskeletal: Positive: Strength/ROM Intact Neurological: Positive: Sensory/Motor Intact, Alert, Oriented to Person Place, Time, CN Intact II-III, Speech Normal Diagnostics - Vital Signs Vital Signs Temp Pulse Resp BP Pulse Ox 06/03/19 13:29 99.9 F 75 16 95/68 98 - Laboratory Lab Statement: Any lab studies that have been ordered have been reviewed, and results considered in the medical decision making process. EENT Course/Dx - Course Course Of Treatment: 39 yr old with sinusitis; rx with augmentin. - Diagnoses Provider Diagnoses: Sinusitis Discharge ED - Sign-Out/Discharge Documenting (check all that apply): Patient Departure All imaging exams completed and their final reports reviewed: No Studies - Discharge Plan Condition: Good Disposition: HOME Prescriptions: Amoxicillin/Clavulanate TAB* [Augmentin TAB 875*] 875 mg PO BID #20 tab Patient Education Materials: Sinusitis (ED) Referrals: Antwan August MD [Primary Care Provider] - 2 Days - Billing Disposition and Condition Condition: GOOD Disposition: Home
== END 2019-06-03 13:53 | disposition home or self-care (01) ==
LOC: UCCORT 13:10
DX: J32.9 Chronic sinusitis, unspecified (principal)
CPT/HCPCS: 99212; G0463

== ENCOUNTER 2019-07-31 16:44 | Emergency (ER) | payer BC ==
--- NOTE | 2019-07-31 17:18 | ED ---
Abdominal Pain/Male - HPI Summary HPI Summary: This pt is a 39 y/o male, with hx of nephrotic syndrome and "gallbladder problems," [facility] ab[facility] x4 days. Pt states pt has these abd pain every once in a couple of week but this episode of pain has been going on for 4 days. Pt notes last night he had the worse pain in the epigastrium area. Currently he notes pain across his upper abdomen and going up the right side of his abdomen. He notes associated symptoms of nausea, diarrhea, constipation. Pt reports his urine is foam-like and has leg swelling. Denies fever, chills, vomiting. He states he spoke with Dr. Turner, surgeon, 1-2 months ago and did not want to do anything with his gallbladder due to his hx of nephrotic syndrome. Patient sees a specialist for nephrotic syndrome in [place]. Pt notes he had an MRCP in [place] and was dx with pancreatic divisum. He states he also had an ERCP done in the summer 2018. Pt was placed on 60 mg of Prednisone weekly about 1.5 weeks ago for nephrotic syndrome. Denies any other PMHx. NKDA. Denies tobacco, drug, or alcohol use. Medications reviewed. Allergies noted. - History of Current Complaint Chief Complaint: EDAbdPain Stated Complaint: ABD PAIN PER PT Hx Obtained From: Patient Onset/Duration: Lasting Days, Still Present Timing: Lasting Days Severity Currently: Moderate Pain Intensity: 5 Pain Scale Used: 0-10 Numeric Location: Epigastric, Other - right sided Radiates: No Aggravating Factor(s): Nothing Alleviating Factor(s): Nothing Associated Signs And Symptoms: Positive: Constipation, Nausea, Diarrhea. Negative: Fever, Vomiting - Allergies/Home Medications Allergies/Adverse Reactions: Allergies Allergy/AdvReac Type Severity Reaction Status Date / Time No Known Allergies Allergy Verified 07/31/19 16:53 Home Medications: Home Medications predniSONE TAB* [Deltasone 10 MG TAB*] 10 mg PO DAILY 07/31/19 [History Confirmed 07/31/19] PMH/Surg Hx/FS Hx/Imm Hx Endocrine/Hematology History: Denies: Hx Diabetes, Hx Systemic Lupus Erythematosus, Hx Thyroid Disease Cardiovascular History: Denies: Hx Congestive Heart Failure, Hx Hypertension, Hx Pacemaker/ICD Respiratory History: Denies: Hx Asthma, Hx Chronic Obstructive Pulmonary Disease (COPD) GI History: Denies: Hx Ulcer History: Reports: Other Problems/Disorders - MINIMAL CHANGE DISEASE/ NEPHROTIC SYNDROME Denies: Hx Dialysis Comment Only: Hx Renal Disease - 2 YEARS AGO AN EPISODE OF NEPHROTIC SYNDROME. Musculoskeletal History: Denies: Hx Rheumatoid Arthritis Sensory History: Denies: Hx Hearing Aid Psychiatric History: Denies: Hx Panic Disorder - Cancer History Hx Chemotherapy: No - Surgical History Surgical History: Yes Surgery Procedure, Year, and Place: kidney biopsy Infectious Disease History: No Infectious Disease History: Denies: Hx Clostridium Difficile, Hx Hepatitis, Hx Human Immunodeficiency Virus (HIV), Hx of Known/Suspected MRSA, Hx Shingles, Hx Tuberculosis, Hx Known/ Suspected VRE, Hx Known/Suspected VRSA, History Other Infectious Disease, Traveled Outside the [place] in Last 30 Days - Family History Known Family History: Positive: Cardiac Disease - congestive heart failure, Hypertension - mother, Diabetes - mother Negative: Renal Disease - Social History Occupation: Employed Full-time - [employer] Alcohol Use: None Hx Substance Use: No Substance Use Type: Reports: None Hx Tobacco Use: Yes Smoking Status (MU): Never Smoked Tobacco Type: Smokeless Tobacco Amount Used/How Often: 1 can in 2 days Length of Time of Smoking/Using Tobacco: since age 13 Review of Systems Negative: Fever, Chills Gastrointestinal: Other - POSITIVE: constipation Positive: Abdominal Pain, Diarrhea, Nausea. Negative: Vomiting Genitourinary: Other - POSITIVE: foamy like urine Positive: Edema - in legs All Other Systems Reviewed And Are Negative: Yes Physical Exam - Summary Physical Exam Summary: Constitutional: Well-developed, Well-nourished, Alert. (-) Distressed Skin: Warm, Dry HENT: Normocephalic; Atraumatic Eyes: Conjunctiva normal Neck: Musculoskeletal ROM normal neck. (-) JVD, (-) Stridor, (-) Tracheal deviation Cardio: Rhythm regular, rate normal, Heart sounds normal; Intact distal pulses; The pedal pulses are 2+ and symmetric. Radial pulses are 2+ and symmetric. (-) Murmur Pulmonary/Chest wall: Effort normal. (-) Respiratory distress, (-) Wheezes, (-) Rales Abd: Soft, mild epigastric and right upper quadrant tenderness, (-) Distension, (-) Guarding, (-) Rebound Musculoskeletal: (-) Edema Lymph: (-) Cervical adenopathy Neuro: Alert, Oriented x3 Psych: Mood and affect Normal Triage Information Reviewed: Yes Vital Signs On Initial Exam: Initial Vitals Temp Pulse Resp BP Pulse Ox 97.7 F 77 16 128/82 98 07/31/19 16:50 07/31/19 16:50 07/31/19 16:50 07/31/19 16:50 07/31/19 16:50 Vital Signs Reviewed: Yes Procedures - Sedation Patient Received Moderate/Deep Sedation with Procedure: No Diagnostics - Vital Signs Vital Signs Temp Pulse Resp BP Pulse Ox 07/31/19 16:50 97.7 F 77 16 128/82 98 - Laboratory Result Diagrams: 07/31/19 17:29 07/31/19 17:29 Lab Statement: Any lab studies that have been ordered have been reviewed, and results considered in the medical decision making process. Abdominal Pain Male Course/Dx - Course Course Of Treatment: H and is here with epigastric and right upper quadrant pain. Patient's symptoms were worse last night but has been better today. Patient has a history of pancreatic divisum and nephrotic syndrome. Patient is currently on by mouth prednisone. Patient had blood work performed which was grossly unremarkable outside of a mild leukocytosis likely secondary to his steroid use. Patient had an ultrasound performed and patient signed out to Dr. Meade pending those results. - Diagnoses Provider Diagnoses: Epigastric pain, Right upper quadrant pain Discharge ED - Sign-Out/Discharge Documenting (check all that apply): Sign-Out Patient Signing out patient TO: Malka Meade - pending US - Discharge Plan Condition: Stable Disposition: HOME Prescriptions: Dicyclomine CAP* [Bentyl CAP*] 10 mg PO TID PRN #30 cap PRN Reason: abdominal pain Famotidine TAB* [Pepcid 20 MG TAB*] 20 mg PO DAILY 14 Days #14 tab Patient Education Materials: Epigastric Pain (ED) Referrals: Harshal Turner MD [Medical Doctor] - Antwan August MD [Primary Care Provider] - Additional Instructions: Start eating a better diet for acid reflux. No acidic foods, such as tomatoes, alcohol, or coffee. Do not eat 2-3 hours before going to bed. Start taking Pepcid. Follow up with Dr. Turner, surgeon and follow up with Dr. August, your PCP, in 1 -3 days. PLEASE RETURN TO EMERGENCY DEPARTMENT FOR ANY NEW OR WORSENING SYMPTOMS. - Billing Disposition and Condition Condition: STABLE Disposition: Home - Attestation Statements Document Initiated by Prasanna: Yes Documenting Scribe: Noemí Singleton Provider For Whom Prasanna is Documenting (Include Credential): Lavon Dasilva MD Scribe Attestation: Noemí Abdul, scribed for Lavon Dasilva MD on 08/01/19 at 0927. Scribe Documentation Reviewed: Yes Provider Attestation: The documentation as recorded by the Noemí gomez accurately reflects the service I personally performed and the decisions made by me, Lavon Dasilva MD Status of Scribe Document: Viewed
[2019-07-31] MEDS ORDERED: Dicyclomine CAP* 10 MG PO ONE (17:24)
[2019-07-31 17:48] LABS: ABS Eosinophils 0.1 10^3/ul (0-0.6); ABS Monocytes 1.2 10^3/ul (0-0.8); ABS Neutrophils 7.8 10^3/ul (1.5-7.7); Eosinophil % 0.5 %; Hematocrit 49 % (42-52); Hemoglobin 17.2 g/dL (14.0-18.0); Lymphocyte % 18.2 %; Mean Corpuscular HGB Conc 35 g/dL (31-36); Mean Corpuscular Hemoglobin 31 pg (27-31); Mean Corpuscular Volume 89 fL (80-94); Mean Platelet Volume 6.8 fL (7.4-10.4); Nucleated Red Blood Cells % 0.1; Platelet Count 340 10^3/uL (150-450); Red Blood Count 5.55 10^6 /uL (4.18-5.48); Red Cell Distribution Width 14 % (10-15); White Blood Count 11.1 10^3/uL (3.5-10.8)
[2019-07-31 18:00] LABS: Albumin 1.9 g/dL (3.2-5.2); Albumin/Globulin Ratio 0.7 (1-3); Calcium 7.4 mg/dL (8.6-10.3); EGFR African American 113.7 (>60); EGFR Non-African American 93.9 (>60); Globulin 2.6 g/dL (2-4); Potassium 4.1 mmol/L (3.5-5.0); Total Bilirubin 0.2 mg/dL (0.2-1.0); Total Protein 4.5 g/dL (6.4-8.9)
[2019-07-31 19:01] LABS: Urine Appearance Cloudy; Urine Bilirubin Negative (Negative); Urine Blood Negative (Negative); Urine Color Amber; Urine Glucose Negative (Negative); Urine Ketones Negative (Negative); Urine Nitrite Negative (Negative); Urine Protein 3+(>=500 mg/dL) (Negative); Urine Specific Gravity 1.038 (1.010-1.030); Urine Urobilinogen Negative (Negative)
[2019-07-31 19:04] LABS: Urine Bacteria Absent (Absent); Urine Red Blood Cell Trace(0-2/hpf) (Absent); Urine Squamous Epithelial Cell Present (Absent); Urine White Blood Cell Absent (Absent)
--- NOTE | 2019-07-31 19:15 | ED ---
Progress - Progress Note Progress Note: Patient is a sign out from Dr. Dasilva to Dr. Meade at change of shifts 1900 on 07/31/19, pending US gallbladder and disposition. GALLSTONE US IMPRESSION: 1. Mild gallbladder wall thickening and small amount of pericholecystic fluid. However, the applications developer reports a negative sonographic Moreno sign, and no shadowing gallstones are present. 2. Small amount of ascites. 3. Mildly prominent pancreatic duct, similar to prior. Re-Evaluation - Re-Evaluation First Eval Re-Evaluation Time: 20:27 Change: Improved Comment: I have discussed results with the patient and (Sx) is resolved. Discussed symptoms that warrant immediate return to ED. Course/Dx - Course Course Of Treatment: patient's symptoms improved after dicyclomine. patient requested prescription. discussed ultrasound results with patient and family. patient discharged to home. follow up with PCP and surgery. follow up sooner for any worsening symptoms including more pain, fevers, vomiting. - Diagnoses Provider Diagnoses: Epigastric pain, Right upper quadrant pain Discharge ED - Sign-Out/Discharge Documenting (check all that apply): Patient Departure, Receiving Sign-Out Receiving patient FROM: Lavon Dasilva - Patient is a sign out from Dr. Dasilva to Dr. Meade at change of shifts 1900 on 07/31/19. - Discharge Plan Condition: Stable Disposition: HOME Prescriptions: Dicyclomine CAP* [Bentyl CAP*] 10 mg PO TID PRN #30 cap PRN Reason: abdominal pain Famotidine TAB* [Pepcid 20 MG TAB*] 20 mg PO DAILY 14 Days #14 tab Patient Education Materials: Epigastric Pain (ED) Referrals: Harshal Turner MD [Medical Doctor] - Antwan August MD [Primary Care Provider] - Additional Instructions: Start eating a better diet for acid reflux. No acidic foods, such as tomatoes, alcohol, or coffee. Do not eat 2-3 hours before going to bed. Start taking Pepcid. Follow up with Dr. Turner, surgeon and follow up with Dr. August, your PCP, in 1 -3 days. PLEASE RETURN TO EMERGENCY DEPARTMENT FOR ANY NEW OR WORSENING SYMPTOMS. - Billing Disposition and Condition Condition: STABLE Disposition: Home - Attestation Statements Document Initiated by Scribe: Yes Documenting Scribe: Solitario Carter Provider For Whom Starlaibedwin is Documenting (Include Credential): Malka Meade MD Scribe Attestation: I, Solitario Carter, scribed for Malka Meade MD on 07/31/19 at 2132. Scribe Documentation Reviewed: Yes Provider Attestation: The documentation as recorded by the scribeSolitario accurately reflects the service I personally performed and the decisions made by me, Malka Meade MD Status of Scribe Document: Viewed
[2019-08-01 00:20] VITALS: BP 113/87
== END 2019-07-31 20:40 | disposition home or self-care (01) ==
LOC: ED 16:44
DX: R10.13 Epigastric pain (principal); R10.11 Right upper quadrant pain; K59.00 Constipation, unspecified; R11.0 Nausea; R19.7 Diarrhea, unspecified; Z79.899 Other long term (current) drug therapy; R60.0 Localized edema
CPT/HCPCS: 36415; 76705; 80053; 81003; 81015; 83690; 85025; 99282; A9270-GY

== ENCOUNTER 2019-09-14 10:39 | Day surgery (SDC) | payer BC ==
[~2019-09-14 10:39] MED LIST changes: +Buffered Lidocaine 1% SYRIN* 1 ML/SYRINGE INTRADERM ONE; -Cyclobenzaprine TAB* 10 MG PO ONE; +Hydrocortisone INJ* 250 MG VIAL IV ONE; +Lactated Ringers 1000 ML Bag* 1,000 ML IV SCH
[2019-09-14] MEDS ORDERED: Hydrocortisone INJ* 100 MG/2 ML VIAL (in pyxis) ONE (11:00)
[2019-09-14] MEDS ORDERED: Buffered Lidocaine 1% SYRIN* 1 ML/SYRINGE INTRADERM ONE (11:01)
[2019-09-14] MEDS ORDERED: ceFOXitin 2 GM IVPREMIX* 2 GM/50 ML BAG ONE (11:01)
[2019-09-14] MEDS ORDERED: Midazolam* 1 MG/ML 2 ML VIAL (2 MG) ONE (11:03)
[2019-09-14] MEDS ORDERED: fentaNYL* 50 MCG/ML 2 ML VIAL (100 MCG VIAL) ONE (11:03)
[2019-09-14] MEDS ORDERED: HYDROmorphone INJ1* 1 MG/ML SYRINGE ONE ×2 (12:39→14:34)
[2019-09-14] MEDS ORDERED: Bupivacaine 0.5%* 50 ML MDV VIAL ONE (12:43)
[2019-09-14] MEDS ORDERED: Naloxone* 0.4 MG/ML 1 ML VIAL IV PRN (12:47)
[2019-09-14] MEDS ORDERED: Lactated Ringers 1000 ML Bag* 1,000 ML IV SCH (13:00)
[2019-09-14] MEDS ORDERED: Rocuronium* 10 MG/ML VIAL ONE (13:10)
[2019-09-14] MEDS ORDERED: Ondansetron INJ* 2 MG/ML VIAL ONE (13:25)
[2019-09-14] MEDS ORDERED: Etomidate* 2 MG/ML 10 ML VIAL ONE (13:25)
[2019-09-14] MEDS ORDERED: Dexamethasone IV* 4 MG/ML 1 ML (4 MG) ONE (13:25)
[2019-09-14] MEDS ORDERED: Propofol* 10 MG/ML 20 ML BTL ONE (13:25)
--- NOTE | 2019-09-14 14:28 | BRIEFOPN ---
Brief Operative/Procedure Note - Operation Details Pre-Op Diagnosis: cholecystitis Post-Op Diagnosis: same Procedures: robotic laparoscopic cholecystectomy Surgeon(s)/Proceduralists: Johnny. Assist: BELLE Jacobson Anesthesia: GETA. IVF: Crystalloid, 500 mL Estimated Blood Loss: <25cc Findings: as above Specimen(s)/Culture(s) Description: gallbladder Complications: none
[2019-09-14] MEDS: HYDROmorphone INJ1* 1 MG/ML SYRINGE IV PRN ×3 (14:36→15:04)
[2019-09-14] MEDS ORDERED: Haloperidol INJ IV/IM* 5 MG/ML AMP ONE (15:13)
[2019-09-14] MEDS ORDERED: oxyCODONE TAB* 5 MG TAB ONE (15:45)
[2019-09-14] MEDS ORDERED: Haloperidol INJ IV/IM* 5 MG/ML AMP IV SLOW PU ONE (16:00)
[2019-09-14] MEDS ORDERED: oxyCODONE TAB* 5 MG TAB PO ONE (16:00)
[2019-09-14 16:11] VITALS: BP 117/84
--- NOTE | 2019-09-15 02:33 | OP ---
DATE OF OPERATION: 09/14/19 - [facility] DATE OF : 80 ATTENDING SURGEON: Harshal Turner MD LOAN UNDERWRITER: BELLE Zamora PRE-OP DIAGNOSIS: Symptomatic gallbladder/cholecystitis. POST-OP DIAGNOSIS: Symptomatic gallbladder/cholecystitis. OPERATIVE PROCEDURE: Laparoscopic/robotic cholecystectomy. INDICATIONS FOR PROCEDURE: History of pancreatitis, gallbladder sludge. Risks of robotic cholecystectomy including, but not limited bleeding, infection, injury to intraabdominal contents including the bowel, the bile duct, the liver , cystic duct leak explained to the patient. He seemed to understand and agreed to the procedure and all questions were answered. DESCRIPTION OF PROCEDURE: The patient was taken to the operating room and placed supine. Preoperative antibiotics had been given. After the successful induction of general endotracheal anesthesia, the abdomen was prepped and draped in sterile fashion. A time-out was performed indicating correct patient , correct procedure. Left upper quadrant trocar was placed under direct visualization on the camera using a bladeless Optiview trocar, pneumo- peritoneum was achieved to 15 mmHg. The camera was placed in the abdomen. The abdomen was scanned. There was no obvious injury from trocar placement. An 8- mm umbilical and 2 right-sided lower quadrant 8-mm trocars were placed under direct visualization of the camera and the initial 5- mm trocar was replaced with an 8-mm trocar. He was placed in the reverse Trendelenburg position tilted slightly towards the left. The robot was brought in and docked. The gallbladder was retracted up and over the liver. The cystic duct was identified , isolated, clipped, and divided. The cystic artery was identified, isolated, clipped, and divided. The gallbladder was removed from the hepatic bed using Bovie cautery on the scissors. He was placed into an Endobag and removed from the umbilical port site. Clips were in place. Hemostasis was intact. EBL was essentially 0 for the case. Pneumoperitoneum was released from the abdomen. The trocars were removed. The skin was closed with 3-0 Monocryl and glue on the skin. He tolerated the procedure well. He was extubated and taken to recovery room in stable condition. [id number]/[facility] #: [id number] MTDD
== END 2019-09-14 16:31 | disposition home or self-care (01) ==
LOC: OR 10:39
PROVIDERS: ATTEND Surgery
DX: K81.1 Chronic cholecystitis (principal); R10.9 Unspecified abdominal pain; K21.9 Gastro-esophageal reflux disease without esophagitis; K59.09 Other constipation; N04.9 Nephrotic syndrome with unspecified morphologic changes; Z87.891 Personal history of nicotine dependence; Z79.52 Long term (current) use of systemic steroids
CPT/HCPCS: 88304; A9270-GY; J0694; J1100; J1170; J1630; J1720; J2250; J2405; J2704; J3010; J3490